=== PATIENT | female | born 1985 | race Caucasian/White ===

== ENCOUNTER 2016-03-07 07:14 | Emergency (ER) | payer OTHER ==
[~2016-03-07 07:14] MED LIST: IBUP800T23 PO; OXYC1TAB23 PO
[2016-03-07] MEDS ORDERED: MORPHINE 4 MG/ML 1ML SYRINGE As Ordered ONE ×2 (08:00→08:29)
[2016-03-07] MEDS ORDERED: ONDANSETRON 4MG/2ML VIAL (J2405) As Ordered ONE (08:00)
[2016-03-07 08:15] LABS: MEAN CORPUSCULAR HEMOGLOBIN 29.3 pg (27.0-33.0); MEAN CORPUSCULAR HGB CONC 32.8 g/dl (32.0-36.5); MEAN CORPUSCULAR VOLUME 89.4 fl (80.0-96.0); PLATELET COUNT, AUTOMATED 118 k/mm3 (150-450); RED CELL DISTRIBUTION WIDTH 13.4 % (11.5-14.5); WHITE BLOOD COUNT 4.4 K/mm3 (4.0-10.0)
[2016-03-07 08:20] LABS: CONTROL LINE HCG INT CTR LINE PRESENT
[2016-03-07 08:23] LABS: BASOPHILS 1 % (0-4); EOSINOPHILS 9 % (0-5)
[2016-03-07 08:28] LABS: ALBUMIN 3.5 GM/DL (3.2-5.2); ALBUMIN/GLOBULIN RATIO 1.03 (1.00-1.93); ALKALINE PHOSPHATASE 94 U/L (45-117); ALT/SGPT 22 U/L (12-78); AMYLASE 78 U/L (25-115); ANION GAP 6 MEQ/L (8-16); AST/SGOT 17 U/L (15-37); BILIRUBIN,DIRECT < 0.1 MG/DL (0.0-0.2); BILIRUBIN,TOTAL 0.3 MG/DL (0.2-1.0); BLOOD UREA NITROGEN 8 MG/DL (7-18); CALCIUM LEVEL 8.6 MG/DL (8.5-10.1); CARBON DIOXIDE LEVEL 30 MEQ/L (21-32); CHLORIDE LEVEL 108 MEQ/L (98-107); CREATININE FOR GFR 0.69 MG/DL (0.55-1.02); GLOMERULAR FILTRATION RATE > 60.0 (>60); GLUCOSE, FASTING 87 MG/DL (70-105); POTASSIUM SERUM 3.6 MEQ/L (3.5-5.1); SODIUM LEVEL 144 MEQ/L (136-145); TOTAL PROTEIN 6.9 GM/DL (6.4-8.2)
[2016-03-07] MEDS ORDERED: METOCLOPRAMIDE INJ 10MG/2ML VIAL (J2765) As Ordered ONE (09:46)
[2016-03-07] MEDS ORDERED: ISOVUE-370 76% 100ML VIAL (Q9967) As Ordered ONE (10:44)
--- NOTE | 2016-03-07 14:02 | EDDOCDS ---
Nurse's Notes [facility] Name: Helen Wyatt Age: 30 yrs Sex: Female : 1985 Arrival Date: 03/07/2016 Time: 07:14 Bed 8 Private MD: Diagnosis: Generalized abdominal pain;Vomiting Presentation: 03/07 07:19 Presenting complaint: Patient states: Awoke this am with abdominal, chest, back pain mlb1 and SOB. Adult Sepsis Screening: The patient does not have new or worsening altered mentation. Patient's respiratory rate is less than 22. Systolic blood pressure is greater than 100. Patient has a qSOFA score of 0- Negative Sepsis Screen. Suicide/Homicide risk assessment- the patient denies having any suicidal and/or homicidal ideations and does not present with any other emotional, behavioral or mental health complaints. 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 Transition of care: patient was not received from another setting of care. 07:19 Acuity: SOMMER Level 3 mlb1 07:19 Method Of Arrival: Walkin/Carried/Asstd mlb1 Triage Assessment: 07:22 General: Appears distressed, Behavior is appropriate for age, cooperative. Pain: mlb1 Location: back, chest and abdomen Pain currently is 8 out of 10 on a pain scale. HIV screening NA for this visit Offered previously. Respiratory: Onset: The symptoms/episode began/occurred this morning. Respiratory: Airway is patent Respiratory effort is even, unlabored, Reports shortness of breath. GI: Reports nausea. 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 multivitamin Oral tab 1 tablet daily 2. Sertraline 50 mg daily - PMHx: Asthma; PCOS; Seasonal Allergies; - PSHx: Gastric Bypass (2014); Tonsillectomy; Adenoidectomy; - Social history: Smoking status: Patient states former smoker of tobacco. No barriers to communication noted, The patient speaks fluent Syriac, Speaks appropriately for age. - Family history: Not pertinent. - : The pt / caregiver states he / she is not on anticoagulants. Home medication list is obtained from the patient. 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 Screenin:09 Screening information is obtained from the patient. Fall risk: No risks identified. jmk Assistance ADL's: requires no assistance with activities of daily living. Abuse/DV Screen: The patient / caregiver reports he/she is: not in a situation that causes fear, pain or injury. Nutritional screening: No deficits noted. Advance Directives: Currently, there is a health care proxy, norris yoon. There is no active DNR order. There is no living will. There is no Power of Dental Intern. home support is adequate. Assessment: 08:09 General: Appears skin warm and dry color satisfactory Moist pink oral mucosa. Indicates jmk discomfort to anterior chest that increase with inspiration or movement. chest CTA. abd soft and non distended with bowel sounds present x 4. Increased pain diffusely with concentrated areas about umbilicus. Cardiovascular: Capillary refill < 3 seconds Heart tones S1 S2 Edema is absent. Rhythm is. GI: Abdomen is flat, non- distended Bowel sounds present X 4 quads. Abd is tender to palpation in umbilical area. 08:35 General: Appears reports 7/10 discomfort. states " It just made me sleepy" again jmk medicated. 09:53 General: Appears vomiting liquid emesis. medicated for same. jmk 10:30 General: Appears unable to accomodate oral contrast. withotu further vomiting, yet no jmk receptive to contrast. 12:32 General: Appears states pain has persisted and continues to increase with movement. no jmk further emesis. IV patent. awaiting CT interp. 12:40 General: Appears overall presentation unchanged from arrival. without vomiting since jmk cessation of oral contrast. popsicle provided.. 13:14 General: Appears 1/2 popsicle taken and retained. states abdomen feels " the same". jmk presently resting in left side laying position. awaiting dispo. 14:00 Reassessment: Patient appears in no apparent distress at this time. Pain: Location: kr3 abdomen Pain currently is 6 out of 10 on a pain scale. Respiratory: Respiratory effort is even, unlabored. Derm: Skin is normal. Vital Signs: 07:23 BP 133 / 82; Pulse 70; Resp 16; Temp 97.6(TE); Pulse Ox 99% on R/A; Weight 83.91 kg mlb1 (R); Height 5 ft. 8 in. (172.72 cm) (R); Pain 8/10; 08:35 BP 127 / 71; Pulse 65; Resp 16; Pain 7/10; jmk 13:59 BP 121 / 68; Pulse 60; Resp 16; Temp 99.5(O); Pulse Ox 100% on R/A; Pain 6/10; kr3 07:23 Body Mass Index 28.13 (83.91 kg, 172.72 cm) mlb1 ED Course: 07:16 Patient visited by Ghulam Valenzuela Reg. pm4 07:16 Patient moved to Waiting pm4 07:19 Patient visited by Jaime Hood, TESSIE. mlb1 07:20 Triage Initiated mlb1 07:24 Patient visited by Jaime Hood, TESSIE. mlb1 07:28 Patient moved to PD2 / 27 mlb1 07:42 Patient moved to 8 mlb1 07:51 Amparo Singh MD is Attending Physician. sd1 07:56 Patient visited by Amparo Singh MD. sd1 08:09 The patient / caregiver is instructed regarding the plan of care and ED course. jmk 08:09 Inserted saline lock: 20 gauge in left antecubital area. jmk 08:17 Patient visited by Jerrod Shipman,TESSIE. jmk 08:29 DIFFERENTIAL NO CHARGE Sent. jmk 09:24 Patient visited by Harjeet Betancur. jml1 10:09 Patient visited by Sandee Crockett PCA. jlf 11:33 Patient visited by Sandee Crockett PCA. jlf 11:45 [facility] Payment Agreement was scanned into [employer] and attached to record. lg 11:54 Patient visited by Sandee Crockett PCA. jlf 12:18 Patient visited by Sandee Crockett PCA. jlf 12:41 Patient visited by Jerrod Shipman,TESSIE. jmk 13:15 Patient visited by Jerrod Shipman,TESSIE. jmk 14:00 Discontinued lock intact, bleeding controlled, pressure dressing applied, No kr3 redness/swelling at site. No procedures done that require assistance. Administered Medications: 08:08 Drug: morphine 4 mg Route: IVP; Site: left antecubital; jmk 08:08 Drug: Ondansetron 4 mg Route: IVP; Site: left antecubital; jmk 08:08 Drug: NS 0.9% 1000 ml Route: IV; Rate: 250 mL/hr; Site: left antecubital; jmk 08:34 Drug: morphine 4 mg Route: IVP; Site: left antecubital; jmk 09:41 Drug: Diatrizoate Meglumine & Sodium 10 ml [diatrizoate meglumine and diat.sodium 66 jmk %-10 % oral solution (10 mL)] Route: PO; 09:53 Drug: Metoclopramide 10 mg [metoclopramide 5 mg/mL injection solution] Route: IV; Rate: jmk 40 mg/hr; Infused Over: 15 mins; Site: left antecubital; Order Results: Lab Order: Amylase; SPEC'M 03/07/16 07:59 Test: AMYLASE; Value: 78; Range: 25-115; Units: U/L; Status: F Lab Order: Basic Metabolic Profile; SPEC'M 03/07/16 07:59 Test: GLUCOSE, FASTING; Value: 87; Range: 70-105; Units: MG/DL; Status: F Test: BLOOD UREA NITROGEN; Value: 8; Range: 7-18; Units: MG/DL; Status: F Test: CREATININE FOR GFR; Value: 0.69; Range: 0.55-1.02; Units: MG/DL; Status: F Test: SODIUM LEVEL; Range: 136-145; Units: MEQ/L; Status: I Test: POTASSIUM SERUM; Range: 3.5-5.1; Units: MEQ/L; Status: I Test: CHLORIDE LEVEL; Range: 98-107; Units: MEQ/L; Status: I Test: CARBON DIOXIDE LEVEL; Range: 21-32; Units: MEQ/L; Status: I Test: ANION GAP; Range: 8-16; Units: MEQ/L; Status: I Test: CALCIUM LEVEL; Range: 8.5-10.1; Units: MG/DL; Status: I Test: GLOMERULAR FILTRATION RATE; Value: > 60.0; Range: >60; Status: F Test: SODIUM LEVEL; Value: 144; Range: 136-145; Units: MEQ/L; Status: F Test: POTASSIUM SERUM; Value: 3.6; Range: 3.5-5.1; Units: MEQ/L; Status: F Test: CHLORIDE LEVEL; Value: 108; Range: 98-107; Abnormal: Above high normal; Units: MEQ/L; Status: F Test: CARBON DIOXIDE LEVEL; Value: 30; Range: 21-32; Units: MEQ/L; Status: F Test: ANION GAP; Value: 6; Range: 8-16; Abnormal: Below low normal; Units: MEQ/L; Status: F Test: CALCIUM LEVEL; Value: 8.6; Range: 8.5-10.1; Units: MG/DL; Status: F Test Note: ; Units are mL/min/1.73 m2 Chronic Kidney Disease Staging per NKF: Stage I & II GFR >=60 Normal to Mildly Decreased Stage III GFR 30-59 Moderately Decreased Stage IV GFR 15-29 Severely Decreased Stage V GFR <15 Very Little GFR Left ESRD GFR <15 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 Lab Order: CBC with Diff; SPEC'M 03/07/16 07:59 Test: WHITE BLOOD COUNT; Value: 4.4; Range: 4.0-10.0; Units: K/mm3; Status: F Test: RED BLOOD COUNT; Value: 4.08; Range: 4.00-5.40; Units: M/mm3; Status: F Test: HEMOGLOBIN; Value: 12.0; Range: 12.0-16.0; Units: g/dl; Status: F Test: HEMATOCRIT; Value: 36.5; Range: 36.0-47.0; Units: %; Status: F Test: MEAN CORPUSCULAR VOLUME; Value: 89.4; Range: 80.0-96.0; Units: fl; Status: F Test: MEAN CORPUSCULAR HEMOGLOBIN; Value: 29.3; Range: 27.0-33.0; Units: pg; Status: F Test: MEAN CORPUSCULAR HGB CONC; Value: 32.8; Range: 32.0-36.5; Units: g/dl; Status: F Test: RED CELL DISTRIBUTION WIDTH; Value: 13.4; Range: 11.5-14.5; Units: %; Status: F Test: PLATELET COUNT, AUTOMATED; Value: 118; Range: 150-450; Abnormal: Below low normal; Units: k/mm3; Status: F Test: PLATELET ESTIMATE; Range: NORMAL; Status: I Test: NEUTROPHILS; Value: 43; Range: 35-75; Units: %; Status: F Test: LYMPHOCYTES; Value: 34; Range: 16-52; Units: %; Status: F Test: MONOCYTES; Value: 5; Range: 0-8; Units: %; Status: F Test: EOSINOPHILS; Value: 9; Range: 0-5; Abnormal: Above high normal; Units: %; Status: F Test: BASOPHILS; Value: 1; Range: 0-4; Units: %; Status: F Test: ATYPICAL LYMPH; Value: 8; Range: 0-5; Abnormal: Above high normal; Units: %; Status: F Test: RBC MORPHOLOGY; Value: NORMAL; Status: F Lab Order: HCG,Serum Qualitative; 03/07/16 07:59 Test: HCG, SERUM QUALITATIVE; Value: NEGATIVE; Range: NEGATIVE; Status: F Lab Order: Lipase; 03/07/16 07:59 Test: LIPASE; Value: 103; Range: 73-393; Units: U/L; Status: F Lab Order: Liver Profile; 03/07/16 07:59 Test: AST/SGOT; Value: 17; Range: 15-37; Units: U/L; Status: F Test: ALT/SGPT; Value: 22; Range: 12-78; Units: U/L; Status: F Test: ALKALINE PHOSPHATASE; Value: 94; Range: 45-117; Units: U/L; Status: F Test: BILIRUBIN,TOTAL; Value: 0.3; Range: 0.2-1.0; Units: MG/DL; Status: F Test: BILIRUBIN,DIRECT; Value: < 0.1; Range: 0.0-0.2; Units: MG/DL; Status: F Test: TOTAL PROTEIN; Value: 6.9; Range: 6.4-8.2; Units: GM/DL; Status: F Test: ALBUMIN; Value: 3.5; Range: 3.2-5.2; Units: GM/DL; Status: F Test: ALBUMIN/GLOBULIN RATIO; Value: 1.03; Range: 1.00-1.93; Status: F Lab Order: PLATELET ESTIMATE; SPEC03/07/16 07:59 Test: PLATELET ESTIMATE; Value: DECREASED; Range: NORMAL; Status: F Outcome: 13:52 Discharge ordered by Provider. sd1 14:00 Discharge Assessment: patient administered narcotics - yes. Pt provided with safe kr3 discharge. The following High Risk Discharge criteria are identified: None. Discharged to home with family. Condition: stable. Discharge instructions given to patient, family, Instructed on discharge instructions, follow up and referral plans. medication usage, Demonstrated understanding of instructions, medications, Pt was receptive of discharge instructions/ teaching. Prescriptions given X 1. CT Study completed. Property sent home with patient. 14:01 Patient left the ED. kr3 Signatures: Amparo Singh MD MD sd1 Jerrod Shipman,RN RN jmk Arash Julien, Reg Reg lg Jaime Hood RN RN mlb1 Rosa Ordoñez,RN RN kr3 Harjeet Betancur jmSandee Stone, KAYLIE DEVOPS ENGINEER jlf Ghulam Valenzuela, Reg Reg pm4 Corrections: (The following items were deleted from the chart) 08:37 08:09 Advance Directives: Currently, there is no health care proxy. There is no active qik DNR order. There is no living will. There is no Power of Dental Intern. adama YSABEL
--- NOTE | 2016-03-07 14:02 | EDDOCDS ---
Physician Documentation [facility] Name: Helen Wyatt Age: 30 yrs Sex: Female : 1985 Arrival Date: 03/07/2016 Time: 07:14 Bed 8 Private MD: Disposition: 03/07/16 13:52 Discharged to Home/Self Care. Impression: Generalized abdominal pain, Vomiting. - Condition is Stable. - Discharge Instructions: Abdominal Pain, Adult, Nausea and Vomiting. - Prescriptions for ZOFRAN ODT 4 mg - dissolve 1 tablet by ORAL route 4 times per day As needed do not chew, do not swallow whole; 10 tablet. - Medication Reconciliation, Local Pharmacy Hours form. - Follow up: Emergency Department; When: Tomorrow; Reason: Recheck today's complaints. - Problem is new. - Symptoms have improved. Historical: - Allergies: PENICILLINS (Hives); SULFA (SULFONAMIDES) (Hives); - Home Meds: 1. multivitamin Oral tab 1 tablet daily 2. Sertraline 50 mg daily - PMHx: Asthma; PCOS; Seasonal Allergies; - PSHx: Gastric Bypass (2014); Tonsillectomy; Adenoidectomy; - Social history: Smoking status: Patient states former smoker of tobacco. No barriers to communication noted, The patient speaks fluent Indonesian, Speaks appropriately for age. - Family history: Not pertinent. - : The pt / caregiver states he / she is not on anticoagulants. Home medication list is obtained from the patient. 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 8 in. (172.72 cm) (R); Pain 8/10; 08:35 BP 127 / 71; Pulse 65; Resp 16; Pain 7/10; jmk 13:59 BP 121 / 68; Pulse 60; Resp 16; Temp 99.5(O); Pulse Ox 100% on R/A; Pain 6/10; kr3 07:23 Body Mass Index 28.13 (83.91 kg, 172.72 cm) mlb1 MDM: 07:28 ECG WITH READING ER PHYS+CARDIAG ordered. EDMS 07:56 Undress patient appropriately for examination ordered. sd1 07:56 IV Saline Lock ordered. sd1 07:56 morphine 4 mg IVP every 15 minutes; Document pain score/vitals after each dose (Hold if sd1 SBP < 90mmHg) x2 ordered. 07:56 Ondansetron 4 mg IVP once ordered. sd1 07:56 NS 0.9% 1000 ml IV at 250 mL/hr continuous ordered. sd1 07:57 NOTHING BY MOUTH+DIET ordered. EDMS 07:57 Amylase Ordered. EDMS 07:57 Basic Metabolic Profile Ordered. EDMS 07:57 CBC with Diff Ordered. EDMS 07:57 HCG,Serum Qualitative Ordered. EDMS 07:57 Lipase Ordered. EDMS 07:57 Liver Profile Ordered. EDMS 08:18 DIFFERENTIAL NO CHARGE Ordered. EDMS 08:18 PLATELET ESTIMATE Ordered. EDMS 08:44 Financial registration complete. lg 08:51 Basic Metabolic Profile Reviewed. sd1 08:51 CBC with Diff Reviewed. sd1 08:51 Amylase Reviewed. sd1 08:51 HCG,Serum Qualitative Reviewed. sd1 08:51 Lipase Reviewed. sd1 08:51 Liver Profile Reviewed. sd1 08:51 PLATELET ESTIMATE Reviewed. sd1 08:54 CT ABD & PELVIS: IV and Oral Contrast Ordered. EDMS 09:41 Diatrizoate Meglumine & Sodium Liquid 10 ml PO once; mix in 290cc of water ordered. jmk 09:46 Metoclopramide 10 mg IV at 40 mg/hr once over 15 mins ordered. sd1 11:45 [facility] Payment Agreement was scanned into [employer] and attached to record. lg 12:37 Fluid Challenge ordered. sd1 Administered Medications: 08:08 Drug: morphine 4 mg Route: IVP; Site: left antecubital; jmk 08:08 Drug: Ondansetron 4 mg Route: IVP; Site: left antecubital; jmk 08:08 Drug: NS 0.9% 1000 ml Route: IV; Rate: 250 mL/hr; Site: left antecubital; jmk 08:34 Drug: morphine 4 mg Route: IVP; Site: left antecubital; jmk 09:41 Drug: Diatrizoate Meglumine & Sodium 10 ml [diatrizoate meglumine and diat.sodium 66 jmk %-10 % oral solution (10 mL)] Route: PO; 09:53 Drug: Metoclopramide 10 mg [metoclopramide 5 mg/mL injection solution] Route: IV; Rate: jmk 40 mg/hr; Infused Over: 15 mins; Site: left antecubital; Signatures: Dispatcher [employer] Amparo Nevarez MD MD sd1 Jerrod ShipmanRN RN Arash Chauhan, Walker Reg lg Jaime Hood RN RN mlb1 Rosa Ordoñez RN RN kr3 The chart was reviewed and I authenticate all verbal orders and agree with the evaluation and treatment provided.Attachments: 11:45 [facility] Payment Agreement lg MTDD
--- NOTE | 2016-03-07 19:56 | ECGEPIP ---
Stationary ECG Study [facility] - ED Test Date: 2016-03-07 Pat Name: ARY GARCIAS Department: Room: - Gender: F Doctor Of Pharmacy: JGunner : 1985 Requested By: Amparo Singh Order Number: [id number] Reading MD: Amparo Singh Measurements Intervals [place] Rate: 58 P: 58 SD: 180 QRS: 63 QRSD: 114 T: 36 QT: 418 QTc: 413 Interpretive Statements SINUS BRADYCARDIA MODERATE INTRAVENTRICULAR CONDUCTION DELAY DECREASED RATE 08/05/15 Electronically Signed On 03-07-2016 19:56:17 EST by Amparo iSngh
--- NOTE | 2016-03-07 21:39 | REP ---
CT abdomen and pelvis with IV and oral contrast, 03/07/2016 Indication: Abdominal pain Comparison: None Technique: After drinking two cups of oral contrast, each containing 10 ml gastrographin in 290 ml water, 100 ml Isovue 370 mg/ml was injected . 3 mm spiral axial sections were performed through the abdomen and pelvis. Findings: Small amount of dependent atelectasis is noted in lung bases bilaterally. There is mild diffuse fatty infiltration of liver. Liver is enlarged, 21.5 cm cranial caudal dimension. Spleen is upper normal size. The pancreas and gallbladder unremarkable. Adrenal glands are normal. Kidneys are without hydro nephrosis or obstructing ureteral calculi bilaterally. Postsurgical changes are present in the left upper quadrant consistent with prior gastric bypass surgery. There are no findings to suggest small bowel obstruction. P.0. contrast is seen to the mid ileum in the left upper pelvis. Abdominal aorta is of normal course and caliber . There is no retroperitoneal adenopathy. 3 mm calculus is seen on image 122, series 2 in lower pelvis within the dependent portion of bladder or in anterior uterus in a subserosal location. The bladder is without mural thickening. Uterus and adnexae are within normal limits for age. Appendix is without inflammation. Mild mural thickening within the sigmoid colon is most compatible with underdistension There is no free intraperitoneal air or ascites. Impression: Mild mural thickening and sigmoid colon is most compatible with underdistension. In appropriate clinical setting mild colitis may also be considered within the differential diagnosis. Mild diffuse fatty infiltration of liver; hepatomegaly with liver 21.5 cm cranial caudal dimension Prior gastric bypass surgery without evidence of bowel obstruction, extraluminal contrast or free intraperitoneal air Signed by Regina Avina MD 03/07/2016 09:31 P
--- NOTE | 2016-03-09 15:01 | EDDOCDS ---
Physician Documentation [facility] Name: Helen Wyatt Age: 30 yrs Sex: Female : 1985 Arrival Date: 03/07/2016 Time: 07:14 Bed 8 Private MD: Disposition: 03/07/16 13:52 Discharged to Home/Self Care. Impression: Generalized abdominal pain, Vomiting. - Condition is Stable. - Discharge Instructions: Abdominal Pain, Adult, Nausea and Vomiting. - Prescriptions for ZOFRAN ODT 4 mg - dissolve 1 tablet by ORAL route 4 times per day As needed do not chew, do not swallow whole; 10 tablet. - Medication Reconciliation, Local Pharmacy Hours form. - Follow up: Emergency Department; When: Tomorrow; Reason: Recheck today's complaints. - Problem is new. - Symptoms have improved. Historical: - Allergies: PENICILLINS (Hives); SULFA (SULFONAMIDES) (Hives); - Home Meds: 1. multivitamin Oral tab 1 tablet daily 2. Sertraline 50 mg daily - PMHx: Asthma; PCOS; Seasonal Allergies; - PSHx: Gastric Bypass (2014); Tonsillectomy; Adenoidectomy; - Social history: Smoking status: Patient states former smoker of tobacco. No barriers to communication noted, The patient speaks fluent Thai, Speaks appropriately for age. - Family history: Not pertinent. - : The pt / caregiver states he / she is not on anticoagulants. Home medication list is obtained from the patient. 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 8 in. (172.72 cm) (R); Pain 8/10; 08:35 BP 127 / 71; Pulse 65; Resp 16; Pain 7/10; jmk 13:59 BP 121 / 68; Pulse 60; Resp 16; Temp 99.5(O); Pulse Ox 100% on R/A; Pain 6/10; kr3 07:23 Body Mass Index 28.13 (83.91 kg, 172.72 cm) mlb1 MDM: 07:28 ECG WITH READING ER PHYS+CARDIAG ordered. EDMS 07:56 Undress patient appropriately for examination ordered. sd1 07:56 IV Saline Lock ordered. sd1 07:56 morphine 4 mg IVP every 15 minutes; Document pain score/vitals after each dose (Hold if sd1 SBP < 90mmHg) x2 ordered. 07:56 Ondansetron 4 mg IVP once ordered. sd1 07:56 NS 0.9% 1000 ml IV at 250 mL/hr continuous ordered. sd1 07:57 NOTHING BY MOUTH+DIET ordered. EDMS 07:57 Amylase Ordered. EDMS 07:57 Basic Metabolic Profile Ordered. EDMS 07:57 CBC with Diff Ordered. EDMS 07:57 HCG,Serum Qualitative Ordered. EDMS 07:57 Lipase Ordered. EDMS 07:57 Liver Profile Ordered. EDMS 08:18 DIFFERENTIAL NO CHARGE Ordered. EDMS 08:18 PLATELET ESTIMATE Ordered. EDMS 08:44 Financial registration complete. lg 08:51 Basic Metabolic Profile Reviewed. sd1 08:51 CBC with Diff Reviewed. sd1 08:51 Amylase Reviewed. sd1 08:51 HCG,Serum Qualitative Reviewed. sd1 08:51 Lipase Reviewed. sd1 08:51 Liver Profile Reviewed. sd1 08:51 PLATELET ESTIMATE Reviewed. sd1 08:54 CT ABD & PELVIS: IV and Oral Contrast Ordered. EDMS 09:41 Diatrizoate Meglumine & Sodium Liquid 10 ml PO once; mix in 290cc of water ordered. jmk 09:46 Metoclopramide 10 mg IV at 40 mg/hr once over 15 mins ordered. sd1 11:45 [facility] Payment Agreement was scanned into [employer] and attached to record. lg 12:37 Fluid Challenge ordered. sd1 03/08 13:15 EKG-ADULT Reviewed. sd1 13:15 CT ABD & PELVIS: IV and Oral Contrast Reviewed. sd1 03/09 08:39 ECG/EKG was scanned into [employer] and attached to record. gb 11:41 T-Sheet-- Draft Copy was scanned into [employer] and attached to record. gb Administered Medications: 03/07 08:08 Drug: morphine 4 mg Route: IVP; Site: left antecubital; jmk 08:08 Drug: Ondansetron 4 mg Route: IVP; Site: left antecubital; jmk 08:08 Drug: NS 0.9% 1000 ml Route: IV; Rate: 250 mL/hr; Site: left antecubital; jmk 08:34 Drug: morphine 4 mg Route: IVP; Site: left antecubital; jmk 09:41 Drug: Diatrizoate Meglumine & Sodium 10 ml [diatrizoate meglumine and diat.sodium 66 jmk %-10 % oral solution (10 mL)] Route: PO; 09:53 Drug: Metoclopramide 10 mg [metoclopramide 5 mg/mL injection solution] Route: IV; Rate: jmk 40 mg/hr; Infused Over: 15 mins; Site: left antecubital; Signatures: Dispatcher [employer] EDAmparo He MD MD sd1 Jerrod Shipman,RN RN Moriah Brooks, Reg Reg gb Arash Julien, Reg Reg lg Jaime Hood RN RN mlb1 Rosa Ordoñez,RN RN kr3 The chart was reviewed and I authenticate all verbal orders and agree with the evaluation and treatment provided.Attachments: 11:45 [facility] Payment Agreement lg 03/09 08:39 ECG/EKG gb 11:41 T-Sheet-- Draft Copy gb Chart Complete MTDD
--- NOTE | 2016-03-09 15:01 | EDDOCDS ---
Physician Documentation [facility] Name: Helen Wyatt Age: 30 yrs Sex: Female : 1985 Arrival Date: 03/07/2016 Time: 07:14 Bed 8 Private MD: Disposition: 03/07/16 13:52 Discharged to Home/Self Care. Impression: Generalized abdominal pain, Vomiting. - Condition is Stable. - Discharge Instructions: Abdominal Pain, Adult, Nausea and Vomiting. - Prescriptions for ZOFRAN ODT 4 mg - dissolve 1 tablet by ORAL route 4 times per day As needed do not chew, do not swallow whole; 10 tablet. - Medication Reconciliation, Local Pharmacy Hours form. - Follow up: Emergency Department; When: Tomorrow; Reason: Recheck today's complaints. - Problem is new. - Symptoms have improved. Historical: - Allergies: PENICILLINS (Hives); SULFA (SULFONAMIDES) (Hives); - Home Meds: 1. multivitamin Oral tab 1 tablet daily 2. Sertraline 50 mg daily - PMHx: Asthma; PCOS; Seasonal Allergies; - PSHx: Gastric Bypass (2014); Tonsillectomy; Adenoidectomy; - Social history: Smoking status: Patient states former smoker of tobacco. No barriers to communication noted, The patient speaks fluent Icelandic, Speaks appropriately for age. - Family history: Not pertinent. - : The pt / caregiver states he / she is not on anticoagulants. Home medication list is obtained from the patient. 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 PMP: 03/07 07:23 LMP 02/16/2016 mlb1 Vital Signs: 07:23 BP 133 / 82; Pulse 70; Resp 16; Temp 97.6(TE); Pulse Ox 99% on R/A; Weight 83.91 kg / mlb1 184.99 lbs (R); Height 5 ft. 8 in. (172.72 cm) (R); Pain 8/10; 08:35 BP 127 / 71; Pulse 65; Resp 16; Pain 7/10; jmk 13:59 BP 121 / 68; Pulse 60; Resp 16; Temp 99.5(O); Pulse Ox 100% on R/A; Pain 6/10; kr3 07:23 Body Mass Index 28.13 (83.91 kg, 172.72 cm) mlb1 MDM: 07:28 ECG WITH READING ER PHYS+CARDIAG ordered. EDMS 07:56 Undress patient appropriately for examination ordered. sd1 07:56 IV Saline Lock ordered. sd1 07:56 morphine 4 mg IVP every 15 minutes; Document pain score/vitals after each dose (Hold if sd1 SBP < 90mmHg) x2 ordered. 07:56 Ondansetron 4 mg IVP once ordered. sd1 07:56 NS 0.9% 1000 ml IV at 250 mL/hr continuous ordered. sd1 07:57 NOTHING BY MOUTH+DIET ordered. EDMS 07:57 Amylase Ordered. EDMS 07:57 Basic Metabolic Profile Ordered. EDMS 07:57 CBC with Diff Ordered. EDMS 07:57 HCG,Serum Qualitative Ordered. EDMS 07:57 Lipase Ordered. EDMS 07:57 Liver Profile Ordered. EDMS 08:18 DIFFERENTIAL NO CHARGE Ordered. EDMS 08:18 PLATELET ESTIMATE Ordered. EDMS 08:44 Financial registration complete. lg 08:51 Basic Metabolic Profile Reviewed. sd1 08:51 CBC with Diff Reviewed. sd1 08:51 Amylase Reviewed. sd1 08:51 HCG,Serum Qualitative Reviewed. sd1 08:51 Lipase Reviewed. sd1 08:51 Liver Profile Reviewed. sd1 08:51 PLATELET ESTIMATE Reviewed. sd1 08:54 CT ABD & PELVIS: IV and Oral Contrast Ordered. EDMS 09:41 Diatrizoate Meglumine & Sodium Liquid 10 ml PO once; mix in 290cc of water ordered. jmk 09:46 Metoclopramide 10 mg IV at 40 mg/hr once over 15 mins ordered. sd1 11:45 [facility] Payment Agreement was scanned into [employer] and attached to record. lg 12:37 Fluid Challenge ordered. sd1 03/08 13:15 EKG-ADULT Reviewed. sd1 13:15 CT ABD & PELVIS: IV and Oral Contrast Reviewed. sd1 03/09 08:39 ECG/EKG was scanned into [employer] and attached to record. gb 11:41 T-Sheet-- Draft Copy was scanned into [employer] and attached to record. gb Administered Medications: 03/07 08:08 Drug: morphine 4 mg Route: IVP; Site: left antecubital; jmk 08:08 Drug: Ondansetron 4 mg Route: IVP; Site: left antecubital; jmk 08:08 Drug: NS 0.9% 1000 ml Route: IV; Rate: 250 mL/hr; Site: left antecubital; jmk 08:34 Drug: morphine 4 mg Route: IVP; Site: left antecubital; jmk 09:41 Drug: Diatrizoate Meglumine & Sodium 10 ml [diatrizoate meglumine and diat.sodium 66 jmk %-10 % oral solution (10 mL)] Route: PO; 09:53 Drug: Metoclopramide 10 mg [metoclopramide 5 mg/mL injection solution] Route: IV; Rate: jmk 40 mg/hr; Infused Over: 15 mins; Site: left antecubital; Signatures: Dispatcher [employer] EDAmparo He MD MD sd1 Jerrod Shipman,RN RN Moriah Brooks, Reg Reg gb Arash Julien, Reg Reg lg Jaime Hood RN RN mlb1 Rosa Ordoñez,RN RN kr3 The chart was reviewed and I authenticate all verbal orders and agree with the evaluation and treatment provided.Attachments: 11:45 [facility] Payment Agreement lg 03/09 08:39 ECG/EKG gb 11:41 T-Sheet-- Draft Copy gb Chart Complete MTDD
--- NOTE | 2016-03-09 15:02 | EDDOCDS ---
Nurse's Notes [facility] Name: Helen Garcias Age: 30 yrs Sex: Female : 1985 Arrival Date: 03/07/2016 Time: 07:14 Bed 8 Private MD: Diagnosis: Generalized abdominal pain;Vomiting Presentation: 03/07 07:19 Presenting complaint: Patient states: Awoke this am with abdominal, chest, back pain mlb1 and SOB. Adult Sepsis Screening: The patient does not have new or worsening altered mentation. Patient's respiratory rate is less than 22. Systolic blood pressure is greater than 100. Patient has a qSOFA score of 0- Negative Sepsis Screen. Suicide/Homicide risk assessment- the patient denies having any suicidal and/or homicidal ideations and does not present with any other emotional, behavioral or mental health complaints. 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 Transition of care: patient was not received from another setting of care. 07:19 Acuity: SOMMER Level 3 mlb1 07:19 Method Of Arrival: Walkin/Carried/Asstd mlb1 Triage Assessment: 07:22 General: Appears distressed, Behavior is appropriate for age, cooperative. Pain: mlb1 Location: back, chest and abdomen Pain currently is 8 out of 10 on a pain scale. HIV screening NA for this visit Offered previously. Respiratory: Onset: The symptoms/episode began/occurred this morning. Respiratory: Airway is patent Respiratory effort is even, unlabored, Reports shortness of breath. GI: Reports nausea. 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 multivitamin Oral tab 1 tablet daily 2. Sertraline 50 mg daily - PMHx: Asthma; PCOS; Seasonal Allergies; - PSHx: Gastric Bypass (2014); Tonsillectomy; Adenoidectomy; - Social history: Smoking status: Patient states former smoker of tobacco. No barriers to communication noted, The patient speaks fluent Ukrainian, Speaks appropriately for age. - Family history: Not pertinent. - : The pt / caregiver states he / she is not on anticoagulants. Home medication list is obtained from the patient. 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 Screenin:09 Screening information is obtained from the patient. Fall risk: No risks identified. jmk Assistance ADL's: requires no assistance with activities of daily living. Abuse/DV Screen: The patient / caregiver reports he/she is: not in a situation that causes fear, pain or injury. Nutritional screening: No deficits noted. Advance Directives: Currently, there is a health care proxy, norris yoon. There is no active DNR order. There is no living will. There is no Power of Social Group Worker. home support is adequate. Assessment: 08:09 General: Appears skin warm and dry color satisfactory Moist pink oral mucosa. Indicates jmk discomfort to anterior chest that increase with inspiration or movement. chest CTA. abd soft and non distended with bowel sounds present x 4. Increased pain diffusely with concentrated areas about umbilicus. Cardiovascular: Capillary refill < 3 seconds Heart tones S1 S2 Edema is absent. Rhythm is. GI: Abdomen is flat, non- distended Bowel sounds present X 4 quads. Abd is tender to palpation in umbilical area. 08:35 General: Appears reports 7/10 discomfort. states " It just made me sleepy" again jmk medicated. 09:53 General: Appears vomiting liquid emesis. medicated for same. jmk 10:30 General: Appears unable to accomodate oral contrast. withotu further vomiting, yet no jmk receptive to contrast. 12:32 General: Appears states pain has persisted and continues to increase with movement. no jmk further emesis. IV patent. awaiting CT interp. 12:40 General: Appears overall presentation unchanged from arrival. without vomiting since jmk cessation of oral contrast. popsicle provided.. 13:14 General: Appears 1/2 popsicle taken and retained. states abdomen feels " the same". jmk presently resting in left side laying position. awaiting dispo. 14:00 Reassessment: Patient appears in no apparent distress at this time. Pain: Location: kr3 abdomen Pain currently is 6 out of 10 on a pain scale. Respiratory: Respiratory effort is even, unlabored. Derm: Skin is normal. Vital Signs: 07:23 BP 133 / 82; Pulse 70; Resp 16; Temp 97.6(TE); Pulse Ox 99% on R/A; Weight 83.91 kg mlb1 (R); Height 5 ft. 8 in. (172.72 cm) (R); Pain 8/10; 08:35 BP 127 / 71; Pulse 65; Resp 16; Pain 7/10; jmk 13:59 BP 121 / 68; Pulse 60; Resp 16; Temp 99.5(O); Pulse Ox 100% on R/A; Pain 6/10; kr3 07:23 Body Mass Index 28.13 (83.91 kg, 172.72 cm) mlb1 ED Course: 07:16 Patient visited by Ghulam Valenzuela Reg. pm4 07:16 Patient moved to Waiting pm4 07:19 Patient visited by Jaime Hood, TESSIE. mlb1 07:20 Triage Initiated mlb1 07:24 Patient visited by Jamie Hood, TESSIE. mlb1 07:28 Patient moved to PD2 / 27 mlb1 07:42 Patient moved to 8 mlb1 07:51 Amparo Singh MD is Attending Physician. sd1 07:56 Patient visited by Amparo Singh MD. sd1 08:09 The patient / caregiver is instructed regarding the plan of care and ED course. jmk 08:09 Inserted saline lock: 20 gauge in left antecubital area. jmk 08:17 Patient visited by Jerrod Shipman,TESSIE. jmk 08:29 DIFFERENTIAL NO CHARGE Sent. jmk 09:24 Patient visited by Harjeet Betancur. jml1 10:09 Patient visited by Sandee Crockett PCA. jlf 11:33 Patient visited by Sadnee Crockett PCA. jlf 11:45 [facility] Payment Agreement was scanned into [employer] and attached to record. lg 11:54 Patient visited by Sandee Crockett PCA. jlf 12:18 Patient visited by Sandee Crockett PCA. jlf 12:41 Patient visited by Jerrod Shipman,TESSIE. jmk 13:15 Patient visited by Jerrod Shipman,TESSIE. jmk 14:00 Discontinued lock intact, bleeding controlled, pressure dressing applied, No kr3 redness/swelling at site. No procedures done that require assistance. 20:05 EKG-ADULT Returned. EDMS 22:32 CT ABD & PELVIS: IV and Oral Contrast Returned. EDMS 03/09 08:39 ECG/EKG was scanned into [employer] and attached to record. gb 11:41 T-Sheet-- Draft Copy was scanned into [employer] and attached to record. gb Administered Medications: 03/07 08:08 Drug: morphine 4 mg Route: IVP; Site: left antecubital; jmk 08:08 Drug: Ondansetron 4 mg Route: IVP; Site: left antecubital; jmk 08:08 Drug: NS 0.9% 1000 ml Route: IV; Rate: 250 mL/hr; Site: left antecubital; jmk 08:34 Drug: morphine 4 mg Route: IVP; Site: left antecubital; jmk 09:41 Drug: Diatrizoate Meglumine & Sodium 10 ml [diatrizoate meglumine and diat.sodium 66 jmk %-10 % oral solution (10 mL)] Route: PO; 09:53 Drug: Metoclopramide 10 mg [metoclopramide 5 mg/mL injection solution] Route: IV; Rate: jmk 40 mg/hr; Infused Over: 15 mins; Site: left antecubital; Order Results: Lab Order: Amylase; SPEC'M 03/07/16 07:59 Test: AMYLASE; Value: 78; Range: 25-115; Units: U/L; Status: F Lab Order: Basic Metabolic Profile; SPEC'M 03/07/16 07:59 Test: GLUCOSE, FASTING; Value: 87; Range: 70-105; Units: MG/DL; Status: F Test: BLOOD UREA NITROGEN; Value: 8; Range: 7-18; Units: MG/DL; Status: F Test: CREATININE FOR GFR; Value: 0.69; Range: 0.55-1.02; Units: MG/DL; Status: F Test: SODIUM LEVEL; Range: 136-145; Units: MEQ/L; Status: I Test: POTASSIUM SERUM; Range: 3.5-5.1; Units: MEQ/L; Status: I Test: CHLORIDE LEVEL; Range: 98-107; Units: MEQ/L; Status: I Test: CARBON DIOXIDE LEVEL; Range: 21-32; Units: MEQ/L; Status: I Test: ANION GAP; Range: 8-16; Units: MEQ/L; Status: I Test: CALCIUM LEVEL; Range: 8.5-10.1; Units: MG/DL; Status: I Test: GLOMERULAR FILTRATION RATE; Value: > 60.0; Range: >60; Status: F Test: SODIUM LEVEL; Value: 144; Range: 136-145; Units: MEQ/L; Status: F Test: POTASSIUM SERUM; Value: 3.6; Range: 3.5-5.1; Units: MEQ/L; Status: F Test: CHLORIDE LEVEL; Value: 108; Range: 98-107; Abnormal: Above high normal; Units: MEQ/L; Status: F Test: CARBON DIOXIDE LEVEL; Value: 30; Range: 21-32; Units: MEQ/L; Status: F Test: ANION GAP; Value: 6; Range: 8-16; Abnormal: Below low normal; Units: MEQ/L; Status: F Test: CALCIUM LEVEL; Value: 8.6; Range: 8.5-10.1; Units: MG/DL; Status: F Test Note: ; Units are mL/min/1.73 m2 Chronic Kidney Disease Staging per NKF: Stage I & II GFR >=60 Normal to Mildly Decreased Stage III GFR 30-59 Moderately Decreased Stage IV GFR 15-29 Severely Decreased Stage V GFR <15 Very Little GFR Left ESRD GFR <15 on DIRECTOR MEDICAL WRITING Lab Order: CBC with Diff; SPEC'M 03/07/16 07:59 Test: WHITE BLOOD COUNT; Value: 4.4; Range: 4.0-10.0; Units: K/mm3; Status: F Test: RED BLOOD COUNT; Value: 4.08; Range: 4.00-5.40; Units: M/mm3; Status: F Test: HEMOGLOBIN; Value: 12.0; Range: 12.0-16.0; Units: g/dl; Status: F Test: HEMATOCRIT; Value: 36.5; Range: 36.0-47.0; Units: %; Status: F Test: MEAN CORPUSCULAR VOLUME; Value: 89.4; Range: 80.0-96.0; Units: fl; Status: F Test: MEAN CORPUSCULAR HEMOGLOBIN; Value: 29.3; Range: 27.0-33.0; Units: pg; Status: F Test: MEAN CORPUSCULAR HGB CONC; Value: 32.8; Range: 32.0-36.5; Units: g/dl; Status: F Test: RED CELL DISTRIBUTION WIDTH; Value: 13.4; Range: 11.5-14.5; Units: %; Status: F Test: PLATELET COUNT, AUTOMATED; Value: 118; Range: 150-450; Abnormal: Below low normal; Units: k/mm3; Status: F Test: PLATELET ESTIMATE; Range: NORMAL; Status: I Test: NEUTROPHILS; Value: 43; Range: 35-75; Units: %; Status: F Test: LYMPHOCYTES; Value: 34; Range: 16-52; Units: %; Status: F Test: MONOCYTES; Value: 5; Range: 0-8; Units: %; Status: F Test: EOSINOPHILS; Value: 9; Range: 0-5; Abnormal: Above high normal; Units: %; Status: F Test: BASOPHILS; Value: 1; Range: 0-4; Units: %; Status: F Test: ATYPICAL LYMPH; Value: 8; Range: 0-5; Abnormal: Above high normal; Units: %; Status: F Test: RBC MORPHOLOGY; Value: NORMAL; Status: F Lab Order: HCG,Serum Qualitative; SPEC' 03/07/16 07:59 Test: HCG, SERUM QUALITATIVE; Value: NEGATIVE; Range: NEGATIVE; Status: F Lab Order: Lipase; [facility]' 03/07/16 07:59 Test: LIPASE; Value: 103; Range: 73-393; Units: U/L; Status: F Lab Order: Liver Profile; [facility] 03/07/16 07:59 Test: AST/SGOT; Value: 17; Range: 15-37; Units: U/L; Status: F Test: ALT/SGPT; Value: 22; Range: 12-78; Units: U/L; Status: F Test: ALKALINE PHOSPHATASE; Value: 94; Range: 45-117; Units: U/L; Status: F Test: BILIRUBIN,TOTAL; Value: 0.3; Range: 0.2-1.0; Units: MG/DL; Status: F Test: BILIRUBIN,DIRECT; Value: < 0.1; Range: 0.0-0.2; Units: MG/DL; Status: F Test: TOTAL PROTEIN; Value: 6.9; Range: 6.4-8.2; Units: GM/DL; Status: F Test: ALBUMIN; Value: 3.5; Range: 3.2-5.2; Units: GM/DL; Status: F Test: ALBUMIN/GLOBULIN RATIO; Value: 1.03; Range: 1.00-1.93; Status: F Lab Order: PLATELET ESTIMATE; SPEC'M 03/07/16 07:59 Test: PLATELET ESTIMATE; Value: DECREASED; Range: NORMAL; Status: F Radiology Order: EKG-ADULT Test: EKG-ADULT REASON FOR EXAMINATION: Chest Pain; Stationary ECG Study; [facility] - ED; ; Test Date: 2016-03-07; Pat Name: HELEN GRACIAS Department:; Room: -; Gender: F Fine Grader: JALEESA; : 1985 Requested By: Amparo Singh; Order Number: [id number] Reading MD: Amparo Singh; Measurements; Intervals [place]; Rate: 58 P: 58; MD: 180 QRS: 63; QRSD: 114 T: 36; QT: 418; QTc: 413; Interpretive Statements; SINUS BRADYCARDIA; MODERATE INTRAVENTRICULAR CONDUCTION DELAY; DECREASED RATE 08/05/15; Electronically Signed On 03-07-2016 19:56:17 EST by Amparo Singh; Radiology Order: CT ABD & PELVIS: IV and Oral Contrast Test: CT ABD & PELVIS: IV and Oral Contrast REASON FOR EXAMINATION: Abdomen Pain; CT abdomen and pelvis with IV and oral contrast, 03/07/2016; ; Indication: Abdominal pain; ; Comparison: None; ; Technique: After drinking two cups of oral contrast, each containing 10 ml; gastrographin in 290 ml water, 100 ml Isovue 370 mg/ml was injected . 3 mm spiral; axial sections were performed through the abdomen and pelvis.; ; Findings: Small amount of dependent atelectasis is noted in lung bases; bilaterally. There is mild diffuse fatty infiltration of liver. Liver is; enlarged, 21.5 cm cranial caudal dimension. Spleen is upper normal size. The; pancreas and gallbladder unremarkable. Adrenal glands are normal. Kidneys are; without hydro nephrosis or obstructing ureteral calculi bilaterally.; ; Postsurgical changes are present in the left upper quadrant consistent with prior; gastric bypass surgery. There are no findings to suggest small bowel; obstruction. P.0. contrast is seen to the mid ileum in the left upper pelvis.; Abdominal aorta is of normal course and caliber . There is no retroperitoneal; adenopathy. 3 mm calculus is seen on image 122, series 2 in lower pelvis; within the dependent portion of bladder or in anterior uterus in a subserosal; location.; ; The bladder is without mural thickening. Uterus and adnexae are within normal; limits for age. Appendix is without inflammation. Mild mural thickening within; the sigmoid colon is most compatible with underdistension There is no free; intraperitoneal air or ascites.; ; Impression:; ; Mild mural thickening and sigmoid colon is most compatible with underdistension.; In appropriate clinical setting mild colitis may also be considered within the; differential diagnosis.; ; Mild diffuse fatty infiltration of liver; hepatomegaly with liver 21.5 cm cranial; caudal dimension; ; Prior gastric bypass surgery without evidence of bowel obstruction, extraluminal; contrast or free intraperitoneal air; ; ; ; ; ; ; Signed by; Regina Avina MD 03/07/2016 09:31 P; Outcome: 13:52 Discharge ordered by Provider. sd1 14:00 Discharge Assessment: patient administered narcotics - yes. Pt provided with safe kr3 discharge. The following High Risk Discharge criteria are identified: None. Discharged to home with family. Condition: stable. Discharge instructions given to patient, family, Instructed on discharge instructions, follow up and referral plans. medication usage, Demonstrated understanding of instructions, medications, Pt was receptive of discharge instructions/ teaching. Prescriptions given X 1. CT Study completed. Property sent home with patient. 14:01 Patient left the ED. kr3 Signatures: Dispatcher [employer] EDAmparo He MD MD sd1 Jerrod Shipman,RN RN Moriah Brooks, Reg Reg gb Arash Julien, Reg Reg lg Jaime Hood, RN RN mlb1 Rosa Ordoñez,RN RN kr3 Harjeet Betancur jml1 Sandee Crockett, FRANCHISE MANAGER FRANCHISE MANAGER jlf Ghulam Valenzuela, Reg Reg pm4 Corrections: (The following items were deleted from the chart) 08:37 08:09 Advance Directives: Currently, there is no health care proxy. There is no active adama DNR order. There is no living will. There is no Power of Social Group Worker. katarzyna Chart Complete MTDD
--- NOTE | 2016-03-10 03:30 | EDDOCDS ---
Physician Documentation [facility] Name: Helen Wyatt Age: 30 yrs Sex: Female : 1985 Arrival Date: 03/07/2016 Time: 07:14 Bed 8 Private MD: Disposition: 03/07/16 13:52 Discharged to Home/Self Care. Impression: Generalized abdominal pain, Vomiting. - Condition is Stable. - Discharge Instructions: Abdominal Pain, Adult, Nausea and Vomiting. - Prescriptions for ZOFRAN ODT 4 mg - dissolve 1 tablet by ORAL route 4 times per day As needed do not chew, do not swallow whole; 10 tablet. - Medication Reconciliation, Local Pharmacy Hours form. - Follow up: Emergency Department; When: Tomorrow; Reason: Recheck today's complaints. - Problem is new. - Symptoms have improved. Historical: - Allergies: PENICILLINS (Hives); SULFA (SULFONAMIDES) (Hives); - Home Meds: 1. multivitamin Oral tab 1 tablet daily 2. Sertraline 50 mg daily - PMHx: Asthma; PCOS; Seasonal Allergies; - PSHx: Gastric Bypass (2014); Tonsillectomy; Adenoidectomy; - Social history: Smoking status: Patient states former smoker of tobacco. No barriers to communication noted, The patient speaks fluent Yakut, Speaks appropriately for age. - Family history: Not pertinent. - : The pt / caregiver states he / she is not on anticoagulants. Home medication list is obtained from the patient. 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 8 in. (172.72 cm) (R); Pain 8/10; 08:35 BP 127 / 71; Pulse 65; Resp 16; Pain 7/10; jmk 13:59 BP 121 / 68; Pulse 60; Resp 16; Temp 99.5(O); Pulse Ox 100% on R/A; Pain 6/10; kr3 07:23 Body Mass Index 28.13 (83.91 kg, 172.72 cm) mlb1 MDM: 07:28 ECG WITH READING ER PHYS+CARDIAG ordered. EDMS 07:56 Undress patient appropriately for examination ordered. sd1 07:56 IV Saline Lock ordered. sd1 07:56 morphine 4 mg IVP every 15 minutes; Document pain score/vitals after each dose (Hold if sd1 SBP < 90mmHg) x2 ordered. 07:56 Ondansetron 4 mg IVP once ordered. sd1 07:56 NS 0.9% 1000 ml IV at 250 mL/hr continuous ordered. sd1 07:57 NOTHING BY MOUTH+DIET ordered. EDMS 07:57 Amylase Ordered. EDMS 07:57 Basic Metabolic Profile Ordered. EDMS 07:57 CBC with Diff Ordered. EDMS 07:57 HCG,Serum Qualitative Ordered. EDMS 07:57 Lipase Ordered. EDMS 07:57 Liver Profile Ordered. EDMS 08:18 DIFFERENTIAL NO CHARGE Ordered. EDMS 08:18 PLATELET ESTIMATE Ordered. EDMS 08:44 Financial registration complete. lg 08:51 Basic Metabolic Profile Reviewed. sd1 08:51 CBC with Diff Reviewed. sd1 08:51 Amylase Reviewed. sd1 08:51 HCG,Serum Qualitative Reviewed. sd1 08:51 Lipase Reviewed. sd1 08:51 Liver Profile Reviewed. sd1 08:51 PLATELET ESTIMATE Reviewed. sd1 08:54 CT ABD & PELVIS: IV and Oral Contrast Ordered. EDMS 09:41 Diatrizoate Meglumine & Sodium Liquid 10 ml PO once; mix in 290cc of water ordered. jmk 09:46 Metoclopramide 10 mg IV at 40 mg/hr once over 15 mins ordered. sd1 11:45 [facility] Payment Agreement was scanned into [employer] and attached to record. lg 12:37 Fluid Challenge ordered. sd1 03/08 13:15 EKG-ADULT Reviewed. sd1 13:15 CT ABD & PELVIS: IV and Oral Contrast Reviewed. sd1 03/09 08:39 ECG/EKG was scanned into [employer] and attached to record. gb 11:41 T-Sheet-- Draft Copy was scanned into [employer] and attached to record. gb Administered Medications: 03/07 08:08 Drug: morphine 4 mg Route: IVP; Site: left antecubital; jmk 08:08 Drug: Ondansetron 4 mg Route: IVP; Site: left antecubital; jmk 08:08 Drug: NS 0.9% 1000 ml Route: IV; Rate: 250 mL/hr; Site: left antecubital; jmk 08:34 Drug: morphine 4 mg Route: IVP; Site: left antecubital; jmk 09:41 Drug: Diatrizoate Meglumine & Sodium 10 ml [diatrizoate meglumine and diat.sodium 66 jmk %-10 % oral solution (10 mL)] Route: PO; 09:53 Drug: Metoclopramide 10 mg [metoclopramide 5 mg/mL injection solution] Route: IV; Rate: jmk 40 mg/hr; Infused Over: 15 mins; Site: left antecubital; Signatures: Dispatcher [employer] EDAmparo He MD MD sd1 Jerrod Shipman,RN RN Moriah Brooks, Reg Reg gb Arash Julien, Reg Reg lg Jaime Hood RN RN mlb1 Rosa Ordoñez,RN RN kr3 The chart was reviewed and I authenticate all verbal orders and agree with the evaluation and treatment provided.Attachments: 11:45 [facility] Payment Agreement lg 03/09 08:39 ECG/EKG gb 11:41 T-Sheet-- Draft Copy gb Chart Complete MTDD
--- NOTE | 2016-03-10 03:30 | EDDOCDS ---
Physician Documentation [facility] Name: Helen Wyatt Age: 30 yrs Sex: Female : 1985 Arrival Date: 03/07/2016 Time: 07:14 Bed 8 Private MD: Disposition: 03/07/16 13:52 Discharged to Home/Self Care. Impression: Generalized abdominal pain, Vomiting. - Condition is Stable. - Discharge Instructions: Abdominal Pain, Adult, Nausea and Vomiting. - Prescriptions for ZOFRAN ODT 4 mg - dissolve 1 tablet by ORAL route 4 times per day As needed do not chew, do not swallow whole; 10 tablet. - Medication Reconciliation, Local Pharmacy Hours form. - Follow up: Emergency Department; When: Tomorrow; Reason: Recheck today's complaints. - Problem is new. - Symptoms have improved. Historical: - Allergies: PENICILLINS (Hives); SULFA (SULFONAMIDES) (Hives); - Home Meds: 1. multivitamin Oral tab 1 tablet daily 2. Sertraline 50 mg daily - PMHx: Asthma; PCOS; Seasonal Allergies; - PSHx: Gastric Bypass (2014); Tonsillectomy; Adenoidectomy; - Social history: Smoking status: Patient states former smoker of tobacco. No barriers to communication noted, The patient speaks fluent Yoruba, Speaks appropriately for age. - Family history: Not pertinent. - : The pt / caregiver states he / she is not on anticoagulants. Home medication list is obtained from the patient. 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 8 in. (172.72 cm) (R); Pain 8/10; 08:35 BP 127 / 71; Pulse 65; Resp 16; Pain 7/10; jmk 13:59 BP 121 / 68; Pulse 60; Resp 16; Temp 99.5(O); Pulse Ox 100% on R/A; Pain 6/10; kr3 07:23 Body Mass Index 28.13 (83.91 kg, 172.72 cm) mlb1 MDM: 07:28 ECG WITH READING ER PHYS+CARDIAG ordered. EDMS 07:56 Undress patient appropriately for examination ordered. sd1 07:56 IV Saline Lock ordered. sd1 07:56 morphine 4 mg IVP every 15 minutes; Document pain score/vitals after each dose (Hold if sd1 SBP < 90mmHg) x2 ordered. 07:56 Ondansetron 4 mg IVP once ordered. sd1 07:56 NS 0.9% 1000 ml IV at 250 mL/hr continuous ordered. sd1 07:57 NOTHING BY MOUTH+DIET ordered. EDMS 07:57 Amylase Ordered. EDMS 07:57 Basic Metabolic Profile Ordered. EDMS 07:57 CBC with Diff Ordered. EDMS 07:57 HCG,Serum Qualitative Ordered. EDMS 07:57 Lipase Ordered. EDMS 07:57 Liver Profile Ordered. EDMS 08:18 DIFFERENTIAL NO CHARGE Ordered. EDMS 08:18 PLATELET ESTIMATE Ordered. EDMS 08:44 Financial registration complete. lg 08:51 Basic Metabolic Profile Reviewed. sd1 08:51 CBC with Diff Reviewed. sd1 08:51 Amylase Reviewed. sd1 08:51 HCG,Serum Qualitative Reviewed. sd1 08:51 Lipase Reviewed. sd1 08:51 Liver Profile Reviewed. sd1 08:51 PLATELET ESTIMATE Reviewed. sd1 08:54 CT ABD & PELVIS: IV and Oral Contrast Ordered. EDMS 09:41 Diatrizoate Meglumine & Sodium Liquid 10 ml PO once; mix in 290cc of water ordered. jmk 09:46 Metoclopramide 10 mg IV at 40 mg/hr once over 15 mins ordered. sd1 11:45 [place] [place] into [employer] and attached to record. lg 12:37 Fluid Challenge ordered. sd1 03/08 13:15 EKG-ADULT Reviewed. sd1 13:15 CT ABD & PELVIS: IV and Oral Contrast Reviewed. sd1 03/09 08:39 ECG/EKG was scanned into [employer] and attached to record. gb 11:41 T-Sheet-- Draft Copy was scanned into [employer] and attached to record. gb Administered Medications: 03/07 08:08 Drug: morphine 4 mg Route: IVP; Site: left antecubital; jmk 08:08 Drug: Ondansetron 4 mg Route: IVP; Site: left antecubital; jmk 08:08 Drug: NS 0.9% 1000 ml Route: IV; Rate: 250 mL/hr; Site: left antecubital; jmk 08:34 Drug: morphine 4 mg Route: IVP; Site: left antecubital; jmk 09:41 Drug: Diatrizoate Meglumine & Sodium 10 ml [diatrizoate meglumine and diat.sodium 66 jmk %-10 % oral solution (10 mL)] Route: PO; 09:53 Drug: Metoclopramide 10 mg [metoclopramide 5 mg/mL injection solution] Route: IV; Rate: jmk 40 mg/hr; Infused Over: 15 mins; Site: left antecubital; Signatures: Dispatcher [employer] EDAmparo He MD MD sd1 Jerrod Shipman,RN RN Moriah Brooks, Reg Reg gb Arash Julien, Reg Reg lg Jaime Hood RN RN mlb1 Rosa Ordoñez,RN RN kr3 The chart was reviewed and I authenticate all verbal orders and agree with the evaluation and treatment provided.Attachments: 11:45 [facility] Payment Agreement lg 03/09 08:39 ECG/EKG gb 11:41 T-Sheet-- Draft Copy gb Chart Complete MTDD
--- NOTE | 2016-03-10 03:30 | EDDOCDS ---
Nurse's Notes [facility] Name: Helen Garcias Age: 30 yrs Sex: Female : 1985 Arrival Date: 03/07/2016 Time: 07:14 Bed 8 Private MD: Diagnosis: Generalized abdominal pain;Vomiting Presentation: 03/07 07:19 Presenting complaint: Patient states: Awoke this am with abdominal, chest, back pain mlb1 and SOB. Adult Sepsis Screening: The patient does not have new or worsening altered mentation. Patient's respiratory rate is less than 22. Systolic blood pressure is greater than 100. Patient has a qSOFA score of 0- Negative Sepsis Screen. Suicide/Homicide risk assessment- the patient denies having any suicidal and/or homicidal ideations and does not present with any other emotional, behavioral or mental health complaints. Status: Patient is not a insurance and financial services agent or dependent. Transition of care: patient was not received from another setting of care. 07:19 Acuity: SOMMER Level 3 mlb1 07:19 Method Of Arrival: Walkin/Carried/Asstd mlb1 Triage Assessment: 07:22 General: Appears distressed, Behavior is appropriate for age, cooperative. Pain: mlb1 Location: back, chest and abdomen Pain currently is 8 out of 10 on a pain scale. HIV screening NA for this visit Offered previously. Respiratory: Onset: The symptoms/episode began/occurred this morning. Respiratory: Airway is patent Respiratory effort is even, unlabored, Reports shortness of breath. GI: Reports nausea. 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 multivitamin Oral tab 1 tablet daily 2. Sertraline 50 mg daily - PMHx: Asthma; PCOS; Seasonal Allergies; - PSHx: Gastric Bypass (2014); Tonsillectomy; Adenoidectomy; - Social history: Smoking status: Patient states former smoker of tobacco. No barriers to communication noted, The patient speaks fluent Persian, Speaks appropriately for age. - Family history: Not pertinent. - : The pt / caregiver states he / she is not on anticoagulants. Home medication list is obtained from the patient. 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 Screenin:09 Screening information is obtained from the patient. Fall risk: No risks identified. jmk Assistance ADL's: requires no assistance with activities of daily living. Abuse/DV Screen: The patient / caregiver reports he/she is: not in a situation that causes fear, pain or injury. Nutritional screening: No deficits noted. Advance Directives: Currently, there is a health care proxy, norris yoon. There is no active DNR order. There is no living will. There is no Power of Drafter Commercial. home support is adequate. Assessment: 08:09 General: Appears skin warm and dry color satisfactory Moist pink oral mucosa. Indicates jmk discomfort to anterior chest that increase with inspiration or movement. chest CTA. abd soft and non distended with bowel sounds present x 4. Increased pain diffusely with concentrated areas about umbilicus. Cardiovascular: Capillary refill < 3 seconds Heart tones S1 S2 Edema is absent. Rhythm is. GI: Abdomen is flat, non- distended Bowel sounds present X 4 quads. Abd is tender to palpation in umbilical area. 08:35 General: Appears reports 7/10 discomfort. states " It just made me sleepy" again jmk medicated. 09:53 General: Appears vomiting liquid emesis. medicated for same. jmk 10:30 General: Appears unable to accomodate oral contrast. withotu further vomiting, yet no jmk receptive to contrast. 12:32 General: Appears states pain has persisted and continues to increase with movement. no jmk further emesis. IV patent. awaiting CT interp. 12:40 General: Appears overall presentation unchanged from arrival. without vomiting since jmk cessation of oral contrast. popsicle provided.. 13:14 General: Appears 1/2 popsicle taken and retained. states abdomen feels " the same". jmk presently resting in left side laying position. awaiting dispo. 14:00 Reassessment: Patient appears in no apparent distress at this time. Pain: Location: kr3 abdomen Pain currently is 6 out of 10 on a pain scale. Respiratory: Respiratory effort is even, unlabored. Derm: Skin is normal. Vital Signs: 07:23 BP 133 / 82; Pulse 70; Resp 16; Temp 97.6(TE); Pulse Ox 99% on R/A; Weight 83.91 kg mlb1 (R); Height 5 ft. 8 in. (172.72 cm) (R); Pain 8/10; 08:35 BP 127 / 71; Pulse 65; Resp 16; Pain 7/10; jmk 13:59 BP 121 / 68; Pulse 60; Resp 16; Temp 99.5(O); Pulse Ox 100% on R/A; Pain 6/10; kr3 07:23 Body Mass Index 28.13 (83.91 kg, 172.72 cm) mlb1 ED Course: 07:16 Patient visited by Ghulam Valenzuela Reg. pm4 07:16 Patient moved to Waiting pm4 07:19 Patient visited by Jaime Hood, TESSIE. mlb1 07:20 Triage Initiated mlb1 07:24 Patient visited by Jaime Hood, TESSIE. mlb1 07:28 Patient moved to PD2 / 27 mlb1 07:42 Patient moved to 8 mlb1 07:51 Amparo Singh MD is Attending Physician. sd1 07:56 Patient visited by Amparo Singh MD. sd1 08:09 The patient / caregiver is instructed regarding the plan of care and ED course. jmk 08:09 Inserted saline lock: 20 gauge in left antecubital area. jmk 08:17 Patient visited by Jerrod Shipman,TESSIE. jmk 08:29 DIFFERENTIAL NO CHARGE Sent. jmk 09:24 Patient visited by Harjeet Betancru. jml1 10:09 Patient visited by Sandee Crockett PCA. jlf 11:33 Patient visited by Sandee Crockett PCA. jlf 11:45 [facility] Payment Agreement was scanned into [employer] and attached to record. lg 11:54 Patient visited by Sandee Crockett PCA. jlf 12:18 Patient visited by Sandee Crockett PCA. jlf 12:41 Patient visited by Jerrod Shipman,TESSIE. jmk 13:15 Patient visited by Jerrod Shipman,TESSIE. jmk 14:00 Discontinued lock intact, bleeding controlled, pressure dressing applied, No kr3 redness/swelling at site. No procedures done that require assistance. 20:05 EKG-ADULT Returned. EDMS 22:32 CT ABD & PELVIS: IV and Oral Contrast Returned. EDMS 03/09 08:39 ECG/EKG was scanned into [employer] and attached to record. gb 11:41 T-Sheet-- Draft Copy was scanned into [employer] and attached to record. gb Administered Medications: 03/07 08:08 Drug: morphine 4 mg Route: IVP; Site: left antecubital; jmk 08:08 Drug: Ondansetron 4 mg Route: IVP; Site: left antecubital; jmk 08:08 Drug: NS 0.9% 1000 ml Route: IV; Rate: 250 mL/hr; Site: left antecubital; jmk 08:34 Drug: morphine 4 mg Route: IVP; Site: left antecubital; jmk 09:41 Drug: Diatrizoate Meglumine & Sodium 10 ml [diatrizoate meglumine and diat.sodium 66 jmk %-10 % oral solution (10 mL)] Route: PO; 09:53 Drug: Metoclopramide 10 mg [metoclopramide 5 mg/mL injection solution] Route: IV; Rate: jmk 40 mg/hr; Infused Over: 15 mins; Site: left antecubital; Order Results: Lab Order: Amylase; SPEC'M 03/07/16 07:59 Test: AMYLASE; Value: 78; Range: 25-115; Units: U/L; Status: F Lab Order: Basic Metabolic Profile; SPEC'M 03/07/16 07:59 Test: GLUCOSE, FASTING; Value: 87; Range: 70-105; Units: MG/DL; Status: F Test: BLOOD UREA NITROGEN; Value: 8; Range: 7-18; Units: MG/DL; Status: F Test: CREATININE FOR GFR; Value: 0.69; Range: 0.55-1.02; Units: MG/DL; Status: F Test: SODIUM LEVEL; Range: 136-145; Units: MEQ/L; Status: I Test: POTASSIUM SERUM; Range: 3.5-5.1; Units: MEQ/L; Status: I Test: CHLORIDE LEVEL; Range: 98-107; Units: MEQ/L; Status: I Test: CARBON DIOXIDE LEVEL; Range: 21-32; Units: MEQ/L; Status: I Test: ANION GAP; Range: 8-16; Units: MEQ/L; Status: I Test: CALCIUM LEVEL; Range: 8.5-10.1; Units: MG/DL; Status: I Test: GLOMERULAR FILTRATION RATE; Value: > 60.0; Range: >60; Status: F Test: SODIUM LEVEL; Value: 144; Range: 136-145; Units: MEQ/L; Status: F Test: POTASSIUM SERUM; Value: 3.6; Range: 3.5-5.1; Units: MEQ/L; Status: F Test: CHLORIDE LEVEL; Value: 108; Range: 98-107; Abnormal: Above high normal; Units: MEQ/L; Status: F Test: CARBON DIOXIDE LEVEL; Value: 30; Range: 21-32; Units: MEQ/L; Status: F Test: ANION GAP; Value: 6; Range: 8-16; Abnormal: Below low normal; Units: MEQ/L; Status: F Test: CALCIUM LEVEL; Value: 8.6; Range: 8.5-10.1; Units: MG/DL; Status: F Test Note: ; Units are mL/min/1.73 m2 Chronic Kidney Disease Staging per NKF: Stage I & II GFR >=60 Normal to Mildly Decreased Stage III GFR 30-59 Moderately Decreased Stage IV GFR 15-29 Severely Decreased Stage V GFR <15 Very Little GFR Left ESRD GFR <15 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 Lab Order: CBC with Diff; SPEC'M 03/07/16 07:59 Test: WHITE BLOOD COUNT; Value: 4.4; Range: 4.0-10.0; Units: K/mm3; Status: F Test: RED BLOOD COUNT; Value: 4.08; Range: 4.00-5.40; Units: M/mm3; Status: F Test: HEMOGLOBIN; Value: 12.0; Range: 12.0-16.0; Units: g/dl; Status: F Test: HEMATOCRIT; Value: 36.5; Range: 36.0-47.0; Units: %; Status: F Test: MEAN CORPUSCULAR VOLUME; Value: 89.4; Range: 80.0-96.0; Units: fl; Status: F Test: MEAN CORPUSCULAR HEMOGLOBIN; Value: 29.3; Range: 27.0-33.0; Units: pg; Status: F Test: MEAN CORPUSCULAR HGB CONC; Value: 32.8; Range: 32.0-36.5; Units: g/dl; Status: F Test: RED CELL DISTRIBUTION WIDTH; Value: 13.4; Range: 11.5-14.5; Units: %; Status: F Test: PLATELET COUNT, AUTOMATED; Value: 118; Range: 150-450; Abnormal: Below low normal; Units: k/mm3; Status: F Test: PLATELET ESTIMATE; Range: NORMAL; Status: I Test: NEUTROPHILS; Value: 43; Range: 35-75; Units: %; Status: F Test: LYMPHOCYTES; Value: 34; Range: 16-52; Units: %; Status: F Test: MONOCYTES; Value: 5; Range: 0-8; Units: %; Status: F Test: EOSINOPHILS; Value: 9; Range: 0-5; Abnormal: Above high normal; Units: %; Status: F Test: BASOPHILS; Value: 1; Range: 0-4; Units: %; Status: F Test: ATYPICAL LYMPH; Value: 8; Range: 0-5; Abnormal: Above high normal; Units: %; Status: F Test: RBC MORPHOLOGY; Value: NORMAL; Status: F Lab Order: HCG,Serum Qualitative; SPEC' 03/07/16 07:59 Test: HCG, SERUM QUALITATIVE; Value: NEGATIVE; Range: NEGATIVE; Status: F Lab Order: Lipase; [facility]' 03/07/16 07:59 Test: LIPASE; Value: 103; Range: 73-393; Units: U/L; Status: F Lab Order: Liver Profile; [facility] 03/07/16 07:59 Test: AST/SGOT; Value: 17; Range: 15-37; Units: U/L; Status: F Test: ALT/SGPT; Value: 22; Range: 12-78; Units: U/L; Status: F Test: ALKALINE PHOSPHATASE; Value: 94; Range: 45-117; Units: U/L; Status: F Test: BILIRUBIN,TOTAL; Value: 0.3; Range: 0.2-1.0; Units: MG/DL; Status: F Test: BILIRUBIN,DIRECT; Value: < 0.1; Range: 0.0-0.2; Units: MG/DL; Status: F Test: TOTAL PROTEIN; Value: 6.9; Range: 6.4-8.2; Units: GM/DL; Status: F Test: ALBUMIN; Value: 3.5; Range: 3.2-5.2; Units: GM/DL; Status: F Test: ALBUMIN/GLOBULIN RATIO; Value: 1.03; Range: 1.00-1.93; Status: F Lab Order: PLATELET ESTIMATE; SPEC'M 03/07/16 07:59 Test: PLATELET ESTIMATE; Value: DECREASED; Range: NORMAL; Status: F Radiology Order: EKG-ADULT Test: EKG-ADULT REASON FOR EXAMINATION: Chest Pain; Stationary ECG Study; [facility] - ED; ; Test Date: 2016-03-07; Pat Name: HELEN GARCIAS Department:; Room: -; Gender: F 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; : 1985 Requested By: Amparo Singh; Order Number: [id number] Reading MD: Amparo Singh; Measurements; Intervals [place]; Rate: 58 P: 58; TN: 180 QRS: 63; QRSD: 114 T: 36; QT: 418; QTc: 413; Interpretive Statements; SINUS BRADYCARDIA; MODERATE INTRAVENTRICULAR CONDUCTION DELAY; DECREASED RATE 08/05/15; Electronically Signed On 03-07-2016 19:56:17 EST by Amparo Singh; Radiology Order: CT ABD & PELVIS: IV and Oral Contrast Test: CT ABD & PELVIS: IV and Oral Contrast REASON FOR EXAMINATION: Abdomen Pain; CT abdomen and pelvis with IV and oral contrast, 03/07/2016; ; Indication: Abdominal pain; ; Comparison: None; ; Technique: After drinking two cups of oral contrast, each containing 10 ml; gastrographin in 290 ml water, 100 ml Isovue 370 mg/ml was injected . 3 mm spiral; axial sections were performed through the abdomen and pelvis.; ; Findings: Small amount of dependent atelectasis is noted in lung bases; bilaterally. There is mild diffuse fatty infiltration of liver. Liver is; enlarged, 21.5 cm cranial caudal dimension. Spleen is upper normal size. The; pancreas and gallbladder unremarkable. Adrenal glands are normal. Kidneys are; without hydro nephrosis or obstructing ureteral calculi bilaterally.; ; Postsurgical changes are present in the left upper quadrant consistent with prior; gastric bypass surgery. There are no findings to suggest small bowel; obstruction. P.0. contrast is seen to the mid ileum in the left upper pelvis.; Abdominal aorta is of normal course and caliber . There is no retroperitoneal; adenopathy. 3 mm calculus is seen on image 122, series 2 in lower pelvis; within the dependent portion of bladder or in anterior uterus in a subserosal; location.; ; The bladder is without mural thickening. Uterus and adnexae are within normal; limits for age. Appendix is without inflammation. Mild mural thickening within; the sigmoid colon is most compatible with underdistension There is no free; intraperitoneal air or ascites.; ; Impression:; ; Mild mural thickening and sigmoid colon is most compatible with underdistension.; In appropriate clinical setting mild colitis may also be considered within the; differential diagnosis.; ; Mild diffuse fatty infiltration of liver; hepatomegaly with liver 21.5 cm cranial; caudal dimension; ; Prior gastric bypass surgery without evidence of bowel obstruction, extraluminal; contrast or free intraperitoneal air; ; ; ; ; ; ; Signed by; Regina Avina MD 03/07/2016 09:31 P; Outcome: 13:52 Discharge ordered by Provider. sd1 14:00 Discharge Assessment: patient administered narcotics - yes. Pt provided with safe kr3 discharge. The following High Risk Discharge criteria are identified: None. Discharged to home with family. Condition: stable. Discharge instructions given to patient, family, Instructed on discharge instructions, follow up and referral plans. medication usage, Demonstrated understanding of instructions, medications, Pt was receptive of discharge instructions/ teaching. Prescriptions given X 1. CT Study completed. Property sent home with patient. 14:01 Patient left the ED. kr3 Signatures: Dispatcher [employer] EDAmparo He MD MD sd1 Jerrod Shipman,RN RN Moriah Brooks, Reg Reg gb Arash Julien, Reg Reg lg Jaime Hood, RN RN mlb1 Rosa Ordoñez,RN RN kr3 Harjeet Betancur jml1 Sandee Crockett, ENTERPRISE SALES PERSON ENTERPRISE SALES PERSON jlf Ghulam Valenzuela, Reg Reg pm4 Corrections: (The following items were deleted from the chart) 08:37 08:09 Advance Directives: Currently, there is no health care proxy. There is no active adama DNR order. There is no living will. There is no Power of Drafter Commercial. katarzyna Chart Complete MTDD
== END 2016-03-07 14:01 | disposition home or self-care (01) ==
LOC: M ED 07:14
DX: R10.9 Unspecified abdominal pain (principal); R11.2 Nausea with vomiting, unspecified; J45.909 Unspecified asthma, uncomplicated; E28.2 Polycystic ovarian syndrome; Z98.84 Bariatric surgery status; Z88.0 Allergy status to penicillin; Z88.2 Allergy status to sulfonamides; Z79.899 Other long term (current) drug therapy
CPT/HCPCS: 74177; 80048; 80076; 82150; 83690; 84703; 85025; 93005; 96374; 96375; 99284; J2405; J2765; Q9967

== ENCOUNTER 2016-03-10 01:38 | Emergency (ER) | payer OTHER ==
[2016-03-10 02:24] LABS: BASO % 0.6 % (0.0-1.0); EOS # 0.2 K/mm3 (0.0-0.50); EOS % 5.1 % (0.0-3.0); LARGE UNSTAINED CELL # 0.1 K/mm3 (0.0-0.4); LARGE UNSTAINED CELL % 2.3 % (0.0-4.0); LYMPH # 1.4 K/mm3 (1.5-4.5); LYMPH % 35.7 % (24.0-44.0); MEAN CORPUSCULAR HGB CONC 32.7 g/dl (32.0-36.5); MEAN CORPUSCULAR VOLUME 88.5 fl (80.0-96.0); MONO # 0.2 K/mm3 (0.0-0.8); MONO % 5.1 % (0.0-5.0); NEUTROPHILS # 2.1 K/mm3 (1.8-7.7); NEUTROPHILS % 51.2 % (36.0-66.0); PLATELET COUNT, AUTOMATED 132 k/mm3 (150-450); RED CELL DISTRIBUTION WIDTH 12.5 % (11.5-14.5)
[2016-03-10] MEDS ORDERED: ONDANSETRON 4MG/2ML VIAL (J2405) As Ordered ONE (02:24)
[2016-03-10] MEDS ORDERED: MORPHINE 4 MG/ML 1ML SYRINGE As Ordered ONE ×2 (02:24→04:48)
[2016-03-10] MEDS ORDERED: GASTROGRAFIN SOLUTION 30ML (Q9963) As Ordered ONE (02:24)
[2016-03-10 02:41] LABS: CONTROL LINE HCG INT CTR LINE PRESENT
[2016-03-10 02:48] LABS: ALBUMIN 3.7 GM/DL (3.2-5.2); ALKALINE PHOSPHATASE 93 U/L (45-117); ALT/SGPT 19 U/L (12-78); AMYLASE 75 U/L (25-115); ANION GAP 9 MEQ/L (8-16); AST/SGOT 12 U/L (15-37); BILIRUBIN,DIRECT 0.1 MG/DL (0.0-0.2); BILIRUBIN,TOTAL 0.4 MG/DL (0.2-1.0); BLOOD UREA NITROGEN 6 MG/DL (7-18); CALCIUM LEVEL 8.5 MG/DL (8.5-10.1); CARBON DIOXIDE LEVEL 30 MEQ/L (21-32); CHLORIDE LEVEL 105 MEQ/L (98-107); CREATININE FOR GFR 0.64 MG/DL (0.55-1.02); GLOMERULAR FILTRATION RATE > 60.0 (>60); GLUCOSE, FASTING 84 MG/DL (70-105); POTASSIUM SERUM 3.5 MEQ/L (3.5-5.1); SODIUM LEVEL 144 MEQ/L (136-145); TOTAL PROTEIN 7.4 GM/DL (6.4-8.2)
[2016-03-10] MEDS ORDERED: ISOVUE-370 76% 100ML VIAL (Q9967) As Ordered ONE (03:54)
--- NOTE | 2016-03-10 04:00 | REPUSA ---
CLINICAL HISTORY: Abdominal pain. TECHNIQUE: Realtime sonographic images were obtained in multiple projections. COMMENTS: The liver is of normal size, parenchyma demonstrates normal echogenicity. No discrete hepatic mass is seen. There is no intra or extrahepatic biliary ductal dilatation. CBD measures 3.3mm. The gallbladder is p hysiologically distended without evidence of calculi. The gallbladder wall is not thickened and there is no pericholecystic fluid. There is no abdominal ascites. The right kidney measures 12.6x6.2x4.1 cm , free of hydronephrosis. IMPRESSION: Unremarkable study. Thank you for your kind referral of this patient.
[2016-03-10] MEDS ORDERED: OXYCODONE/APAP 5MG/325MG(BULK) 1 TAB TAB As Ordered ONE (06:26)
--- NOTE | 2016-03-10 06:36 | EDDOCDS ---
Physician Documentation [facility] Name: Helen Wyatt Age: 30 yrs Sex: Female : 1985 Arrival Date: 03/10/2016 Time: 01:38 Bed 10 Private MD: Disposition: 03/10/16 06:22 Discharged to Home/Self Care. Impression: Abdominal and pelvic pain. - Condition is Stable. - Discharge Instructions: Abdominal Pain, Adult. - Prescriptions for Percocet 5- 325 mg Oral Tablet - take 1 tablet by ORAL route every 6 hours As needed MDD: 4 tabs; 20 tablet. Reglan 10 mg Oral Tablet - take 1 tablet by ORAL route every 6 hours take 30 minutes before meals and at bedtime; 20 tablet. Zofran 4 mg Oral Tablet - take 1 tablet by ORAL route 4 times per day As needed; 10 tablet. - Medication Reconciliation, Local Pharmacy Hours form. - Follow up: Syed Zuñiga MD; When: 1 week; Reason: To establish care. - Problem is an acute exacerbation. - Symptoms have improved. Historical: - Allergies: PENICILLINS (Hives); SULFA (SULFONAMIDES) (Hives); - Home Meds: 1. multivitamin Oral tab 1 tab daily 2. Zofran Oral - PMHx: Asthma; PCOS; Seasonal Allergies; - PSHx: ; Gastric Bypass; Tonsillectomy; - Social history: Smoking status: Patient states was never smoker of tobacco. No barriers to communication noted, The patient speaks fluent Sinhala, Speaks appropriately for age. - Family history: Not pertinent. - : The pt / caregiver states he / she is not on anticoagulants. Home medication list is obtained from the patient. 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 8 in. (172.72 cm); 05:15 Pain 5/10; mlc 06:33 BP 112 / 70; Pulse 70; Resp 18; Temp 98.2; Pulse Ox 97% ; Pain 3/10; mlc 01:48 Body Mass Index 27.98 (83.46 kg, 172.72 cm) cz MDM: 02:15 NS 0.9% 1000 ml IV at bolus once ordered. mm11 02:15 Ondansetron 4 mg IVP once ordered. mm11 02:15 morphine 4 mg IVP every 30 minutes; Document pain score/vitals after each dose (Hold if mm11 SBP < 90mmHg) x2 ordered. 02:15 IV Saline Lock ordered. mm11 02:15 Undress patient appropriately for examination ordered. mm11 02:16 Amylase Ordered. EDMS 02:16 Basic Metabolic Profile Ordered. EDMS 02:16 CBC with Diff Ordered. EDMS 02:16 HCG,Serum Qualitative Ordered. EDMS 02:16 Lipase Ordered. EDMS 02:16 Liver Profile Ordered. EDMS 02:16 CT ABD & PELVIS: IV and Oral Contrast Ordered. EDMS 02:16 Gallbladder US Ordered. EDMS 02:16 NOTHING BY MOUTH+DIET ordered. EDMS 02:21 Diatrizoate Meglumine & Sodium Liquid 10 ml PO once; mix in 290cc of water ordered. mlc 02:21 Diatrizoate Meglumine & Sodium Liquid 10 ml PO once; mix in 290cc of water [place]. [facility] 02:23 Financial registration complete. [facility] 02:49 CBC with Diff Reviewed. mm11 02:49 HCG,Serum Qualitative Reviewed. mm11 02:59 Basic Metabolic Profile Reviewed. mm11 02:59 Liver Profile Reviewed. mm11 02:59 Amylase Reviewed. mm11 02:59 HCG,Serum Qualitative Reviewed. mm11 02:59 Lipase Reviewed. mm11 06:08 Gallbladder US Reviewed. mm11 06:21 oxyCODONE-acetaminophen 4 pack 5 mg-325 mg 1 packets PO once; Dispense with pt, take as mm11 per instruction on package ordered. Administered Medications: 02:37 Drug: morphine 4 mg [morphine 4 mg/mL intravenous cartridge (1 mL)] Route: IVP; Site: mlc right antecubital; 03:29 Follow up: Response: No significant change. [facility] 02:37 Not Given (Other Intervention Used): Diatrizoate Meglumine & Sodium Liquid 10 ml PO mlc once; mix in 290cc of water 02:37 Drug: Diatrizoate Meglumine & Sodium 10 ml [diatrizoate meglumine and diat.sodium 66 mlc %-10 % oral solution (10 mL)] Route: PO; 02:38 Drug: NS 0.9% 1000 ml [sodium chloride 0.9 % intravenous solution] Route: IV; Rate: mlc bolus; Site: right antecubital; 02:38 Drug: Ondansetron 4 mg [ondansetron HCl 2 mg/mL intravenous solution (2 mL)] Route: mlc IVP; Site: right antecubital; 04:52 Drug: morphine 4 mg [morphine 4 mg/mL intravenous cartridge (1 mL)] Route: IVP; Site: mlc right antecubital; 05:15 Follow up: Pain 5/10 Adult; Response: Pain is decreased [facility] Signatures: Dispatcher [employer] EDFeliciano Oseguera RN RN cz Maynard, Matthew, DO DO mm11 Shameka Bañuelos RN RN [facility] Suellen Green [facility] Maria
--- NOTE | 2016-03-10 06:36 | EDDOCDS ---
Nurse's Notes [facility] Name: Helen Wyatt Age: 30 yrs Sex: Female : 1985 Arrival Date: 03/10/2016 Time: 01:38 Bed 10 Private MD: Diagnosis: Abdominal and pelvic pain Presentation: 03/10 01:45 Presenting complaint: Patient states: continues with abdominal pain seen by own cz provideer post appt. Risk factors: the patient reports no vaginal bleeding. Adult Sepsis Screening: The patient does not have new or worsening altered mentation. Patient's respiratory rate is less than 22. Systolic blood pressure is greater than 100. Patient has a qSOFA score of 0- Negative Sepsis Screen. Suicide/Homicide risk assessment- the patient denies having any suicidal and/or homicidal ideations and does not present with any other emotional, behavioral or mental health complaints. 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 Transition of care: patient was not received from another setting of care. 01:45 Acuity: SOMMER Level 3 cz 01:45 Method Of Arrival: Walkin/Carried/Asstd cz Triage Assessment: 01:48 General: Appears uncomfortable. Pain: Location: abdomen Pain currently is 8 out of 10 cz on a pain scale. HIV screening NA for this visit Offered previously. 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 multivitamin Oral tab 1 tab daily 2. Zofran Oral - PMHx: Asthma; PCOS; Seasonal Allergies; - PSHx: ; Gastric Bypass; Tonsillectomy; - Social history: Smoking status: Patient states was never smoker of tobacco. No barriers to communication noted, The patient speaks fluent Upper Sorbian, Speaks appropriately for age. - Family history: Not pertinent. - : The pt / caregiver states he / she is not on anticoagulants. Home medication list is obtained from the patient. 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 Screenin:38 Screening information is obtained from the patient. Fall risk: No risks identified. mlc Assistance ADL's: requires no assistance with activities of daily living. Abuse/DV Screen: The patient / caregiver reports he/she is: not in a situation that causes fear, pain or injury. Nutritional screening: No deficits noted. home support is adequate. 02:45 Advance Directives: Currently, there is a health care proxy, Gretel Greene, mother. mlc There is an active Power of Computing Machine Operator, Gretel Greene, mother. Assessment: 02:38 General: Appears in no apparent distress, uncomfortable, Behavior is cooperative. Pain: mlc Location: epigastric area and right upper quadrant Pain currently is 6 out of 10 on a pain scale. Neurological: Level of Consciousness is awake, alert, obeys commands, Oriented to person, place, time. Respiratory: Airway is patent Respiratory effort is even, unlabored, Respiratory pattern is regular. GI: Abdomen is non- distended Bowel sounds present X 4 quads. Abd is soft X 4 quads. Derm: Skin is normal. 03:25 Reassessment: Patient appears in no apparent distress at this time. pt resting mlc comfortably in bed, resp easy/unlabored. . 04:52 Reassessment: Patient appears in no apparent distress at this time. pt reports increase mlc in pain, pt medicated per order. resp easy/unlabored. . 05:15 Reassessment: Patient appears in no apparent distress at this time. Patient states mlc feeling better. pt reports pain is 5/10, states she is comfortable. resp easy/unlabored. . 06:33 General: Appears in no apparent distress, comfortable, Behavior is cooperative. Pain: mlc Pain currently is 3 out of 10 on a pain scale. Neurological: Level of Consciousness is awake, alert, Oriented to person, place, time. Respiratory: Airway is patent Respiratory effort is even, unlabored, Respiratory pattern is regular. Vital Signs: 01:48 BP 129 / 85; Pulse 65; Resp 16; Temp 96.6(T); Pulse Ox 99% on R/A; Weight 83.46 kg; cz Height 5 ft. 8 in. (172.72 cm); 05:15 Pain 5/10; mlc 06:33 BP 112 / 70; Pulse 70; Resp 18; Temp 98.2; Pulse Ox 97% ; Pain 3/10; mlc 01:48 Body Mass Index 27.98 (83.46 kg, 172.72 cm) Vitals: 01:48 Log In Time: March 10, 2016 at 01:40. ED Course: 01:40 Patient visited by Thi Arceo, Reg. hs2 01:40 Patient moved to Waiting hs2 01:47 Triage Initiated cz 01:54 Shameka Bañuelos RN is Primary Nurse. ml3 01:54 Patient moved to 10 ml3 02:02 Greg Urena DO is Attending Physician. mm11 02:02 Patient visited by Greg Urena DO. mm11 02:12 Patient visited by Greg Urena DO. mm11 02:20 Amylase Sent. mlc 02:20 Basic Metabolic Profile Sent. mlc 02:20 CBC with Diff Sent. mlc 02:20 HCG,Serum Qualitative Sent. mlc 02:20 Lipase Sent. mlc 02:20 Liver Profile Sent. mlc 02:38 The patient / caregiver is instructed regarding the plan of care and ED course. mlc 02:38 Inserted saline lock: 18 gauge in right antecubital area and blood collected. The [facility] patient tolerated the procedure well. 02:39 Patient visited by Shameka Bañuelos RN. mlc 02:45 Patient visited by Shameka Bañuelos RN. mlc 04:13 Patient visited by Carroll Chen PCA. kb5 04:29 Gallbladder US Returned. EDMS 04:53 Patient visited by Shameka Bañuelos RN. mlc 04:56 Patient visited by Shameka Bañuelos RN. mlc 05:16 Patient visited by Shameka Bañuelos RN. mlc 06:21 Patient visited by Greg Urena DO. mm11 06:22 Syed Zuñiga MD is Referral Physician. mm11 06:33 Discontinued IV lock intact, bleeding controlled, pressure dressing applied, No mlc redness/swelling at site. No procedures done that require assistance. 06:35 Patient visited by Shameka Bañuelos RN. mlc Administered Medications: 02:37 Drug: morphine 4 mg [morphine 4 mg/mL intravenous cartridge (1 mL)] Route: IVP; Site: mlc right antecubital; 03:29 Follow up: Response: No significant change. mlc 02:37 Not Given (Other Intervention Used): Diatrizoate Meglumine & Sodium Liquid 10 ml PO mlc once; mix in 290cc of water 02:37 Drug: Diatrizoate Meglumine & Sodium 10 ml [diatrizoate meglumine and diat.sodium 66 mlc %-10 % oral solution (10 mL)] Route: PO; 02:38 Drug: NS 0.9% 1000 ml [sodium chloride 0.9 % intravenous solution] Route: IV; Rate: mlc bolus; Site: right antecubital; 02:38 Drug: Ondansetron 4 mg [ondansetron HCl 2 mg/mL intravenous solution (2 mL)] Route: mlc IVP; Site: right antecubital; 04:52 Drug: morphine 4 mg [morphine 4 mg/mL intravenous cartridge (1 mL)] Route: IVP; Site: mlc right antecubital; 05:15 Follow up: Pain 07/11 Adult; Response: Pain is decreased [facility] Order Results: Lab Order: Amylase; SPEC'M 03/10/16 02:19 Test: AMYLASE; Value: 75; Range: 25-115; Units: U/L; Status: F Lab Order: Basic Metabolic Profile; SPEC'M 03/10/16 02:19 Test: GLUCOSE, FASTING; Value: 84; Range: 70-105; Units: MG/DL; Status: F Test: BLOOD UREA NITROGEN; Value: 6; Range: 7-18; Abnormal: Below low normal; Units: MG/DL; Status: F Test: CREATININE FOR GFR; Value: 0.64; Range: 0.55-1.02; Units: MG/DL; Status: F Test: SODIUM LEVEL; Range: 136-145; Units: MEQ/L; Status: I Test: POTASSIUM SERUM; Range: 3.5-5.1; Units: MEQ/L; Status: I Test: CHLORIDE LEVEL; Range: 98-107; Units: MEQ/L; Status: I Test: CARBON DIOXIDE LEVEL; Range: 21-32; Units: MEQ/L; Status: I Test: ANION GAP; Range: 8-16; Units: MEQ/L; Status: I Test: CALCIUM LEVEL; Range: 8.5-10.1; Units: MG/DL; Status: I Test: GLOMERULAR FILTRATION RATE; Value: > 60.0; Range: >60; Status: F Test: SODIUM LEVEL; Value: 144; Range: 136-145; Units: MEQ/L; Status: F Test: POTASSIUM SERUM; Value: 3.5; Range: 3.5-5.1; Units: MEQ/L; Status: F Test: CHLORIDE LEVEL; Value: 105; Range: 98-107; Units: MEQ/L; Status: F Test: CARBON DIOXIDE LEVEL; Value: 30; Range: 21-32; Units: MEQ/L; Status: F Test: ANION GAP; Value: 9; Range: 8-16; Units: MEQ/L; Status: F Test: CALCIUM LEVEL; Value: 8.5; Range: 8.5-10.1; Units: MG/DL; Status: F Test Note: ; Units are mL/min/1.73 m2 Chronic Kidney Disease Staging per NKF: Stage I & II GFR >=60 Normal to Mildly Decreased Stage III GFR 30-59 Moderately Decreased Stage IV GFR 15-29 Severely Decreased Stage V GFR <15 Very Little GFR Left ESRD GFR <15 on FLIGHT INSPECTOR Lab Order: CBC with Diff; SPEC'M 03/10/16 02:19 Test: WHITE BLOOD COUNT; Value: 4.0; Range: 4.0-10.0; Units: K/mm3; Status: F Test: RED BLOOD COUNT; Value: 4.43; Range: 4.00-5.40; Units: M/mm3; Status: F Test: HEMOGLOBIN; Value: 12.8; Range: 12.0-16.0; Units: g/dl; Status: F Test: HEMATOCRIT; Value: 39.2; Range: 36.0-47.0; Units: %; Status: F Test: MEAN CORPUSCULAR VOLUME; Value: 88.5; Range: 80.0-96.0; Units: fl; Status: F Test: MEAN CORPUSCULAR HEMOGLOBIN; Value: 29.0; Range: 27.0-33.0; Units: pg; Status: F Test: MEAN CORPUSCULAR HGB CONC; Value: 32.7; Range: 32.0-36.5; Units: g/dl; Status: F Test: RED CELL DISTRIBUTION WIDTH; Value: 12.5; Range: 11.5-14.5; Units: %; Status: F Test: PLATELET COUNT, AUTOMATED; Value: 132; Range: 150-450; Abnormal: Below low normal; Units: k/mm3; Status: F Test: NEUTROPHILS %; Value: 51.2; Range: 36.0-66.0; Units: %; Status: F Test: LYMPH %; Value: 35.7; Range: 24.0-44.0; Units: %; Status: F Test: MONO %; Value: 5.1; Range: 0.0-5.0; Abnormal: Above high normal; Units: %; Status: F Test: EOS %; Value: 5.1; Range: 0.0-3.0; Abnormal: Above high normal; Units: %; Status: F Test: BASO %; Value: 0.6; Range: 0.0-1.0; Units: %; Status: F Test: LARGE UNSTAINED CELL %; Value: 2.3; Range: 0.0-4.0; Units: %; Status: F Test: NEUTROPHILS #; Value: 2.1; Range: 1.8-7.7; Units: K/mm3; Status: F Test: LYMPH #; Value: 1.4; Range: 1.5-4.5; Abnormal: Below low normal; Units: K/mm3; Status: F Test: MONO #; Value: 0.2; Range: 0.0-0.8; Units: K/mm3; Status: F Test: EOS #; Value: 0.2; Range: 0.0-0.50; Units: K/mm3; Status: F Test: BASO #; Value: 0.0; Range: 0.0-0.2; Units: K/mm3; Status: F Test: LARGE UNSTAINED CELL #; Value: 0.1; Range: 0.0-0.4; Units: K/mm3; Status: F Lab Order: HCG,Serum Qualitative; SPEC'M 03/10/16 02:19 Test: HCG, SERUM QUALITATIVE; Value: NEGATIVE; Range: NEGATIVE; Status: F Lab Order: Lipase; SPEC' 03/10/16 02:19 Test: LIPASE; Value: 123; Range: 73-393; Units: U/L; Status: F Lab Order: Liver Profile; SPEC'M 03/10/16 02:19 Test: AST/SGOT; Value: 12; Range: 15-37; Abnormal: Below low normal; Units: U/L; Status: F Test: ALT/SGPT; Value: 19; Range: 12-78; Units: U/L; Status: F Test: ALKALINE PHOSPHATASE; Value: 93; Range: 45-117; Units: U/L; Status: F Test: BILIRUBIN,TOTAL; Value: 0.4; Range: 0.2-1.0; Units: MG/DL; Status: F Test: BILIRUBIN,DIRECT; Value: 0.1; Range: 0.0-0.2; Units: MG/DL; Status: F Test: TOTAL PROTEIN; Value: 7.4; Range: 6.4-8.2; Units: GM/DL; Status: F Test: ALBUMIN; Value: 3.7; Range: 3.2-5.2; Units: GM/DL; Status: F Test: ALBUMIN/GLOBULIN RATIO; Value: 1.00; Range: 1.00-1.93; Status: F Radiology Order: Gallbladder US Test: Gallbladder US REASON FOR EXAMINATION: Biliary Colic; ; CLINICAL HISTORY: Abdominal pain.; TECHNIQUE: Realtime sonographic images were obtained in multiple projections.; COMMENTS:; The liver is of normal size, parenchyma demonstrates normal echogenicity. No discrete hepatic mass is; seen.; There is no intra or extrahepatic biliary ductal dilatation. CBD measures 3.3mm. The gallbladder is p; hysiologically distended without evidence of calculi. The gallbladder wall is not thickened and there; is no pericholecystic fluid. There is no abdominal ascites.; The right kidney measures 12.6x6.2x4.1 cm , free of hydronephrosis.; IMPRESSION:; Unremarkable study.; Thank you for your kind referral of this patient.; ; Outcome: 06:22 Discharge ordered by Provider. mm11 06:33 Discharge Assessment: Patient awake, alert and oriented x 3. No cognitive and/or mlc functional deficits noted. Patient verbalized understanding of disposition instructions. patient administered narcotics - no. Discharge Assessment: patient administered narcotics - yes. Pt provided with safe discharge. The following High Risk Discharge criteria are identified: None. Discharged to home ambulatory. Condition: good Condition: stable. Discharge instructions given to patient, Instructed on discharge instructions, follow up and referral plans. medication usage, no driving heavy equipment, Demonstrated understanding of instructions, medications, Pt was receptive of discharge instructions/ teaching. Prescriptions given X 3. CT Study completed. Ultrasound Study completed. Property sent home with patient. 06:35 Patient left the ED. [facility] Signatures: Dispatcher [employer] EDMS Feliciano Kauffman, RN RN cz Gaviota Tinsley, Ecdis N Navigation Operator Unit ml3 Carroll Chen, MECHANICAL ASSEMBLY MECHANICAL ASSEMBLY kb5 Greg Urena, DO DO mm11 Shameka Bañuelos,ETSSIE RN Thi Bliss, Reg Reg hs2 MTDD
--- NOTE | 2016-03-13 10:37 | EDDOCDS ---
Physician Documentation [facility] Name: Helen Wyatt Age: 30 yrs Sex: Female : 1985 Arrival Date: 03/10/2016 Time: 01:38 Bed 10 Private MD: Disposition: 03/10/16 06:22 Discharged to Home/Self Care. Impression: Abdominal and pelvic pain. - Condition is Stable. - Discharge Instructions: Abdominal Pain, Adult. - Prescriptions for Percocet 5- 325 mg Oral Tablet - take 1 tablet by ORAL route every 6 hours As needed MDD: 4 tabs; 20 tablet. Reglan 10 mg Oral Tablet - take 1 tablet by ORAL route every 6 hours take 30 minutes before meals and at bedtime; 20 tablet. Zofran 4 mg Oral Tablet - take 1 tablet by ORAL route 4 times per day As needed; 10 tablet. - Medication Reconciliation, Local Pharmacy Hours form. - Follow up: Syed Zuñiga MD; When: 1 week; Reason: To establish care. - Problem is an acute exacerbation. - Symptoms have improved. Historical: - Allergies: PENICILLINS (Hives); SULFA (SULFONAMIDES) (Hives); - Home Meds: 1. multivitamin Oral tab 1 tab daily 2. Zofran Oral - PMHx: Asthma; PCOS; Seasonal Allergies; - PSHx: ; Gastric Bypass; Tonsillectomy; - Social history: Smoking status: Patient states was never smoker of tobacco. No barriers to communication noted, The patient speaks fluent Syriac, Speaks appropriately for age. - Family history: Not pertinent. - : The pt / caregiver states he / she is not on anticoagulants. Home medication list is obtained from the patient. 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 8 in. (172.72 cm); 05:15 Pain 5/10; mlc 06:33 BP 112 / 70; Pulse 70; Resp 18; Temp 98.2; Pulse Ox 97% ; Pain 3/10; mlc 01:48 Body Mass Index 27.98 (83.46 kg, 172.72 cm) cz MDM: 02:15 NS 0.9% 1000 ml IV at bolus once ordered. mm11 02:15 Ondansetron 4 mg IVP once ordered. mm11 02:15 morphine 4 mg IVP every 30 minutes; Document pain score/vitals after each dose (Hold if mm11 SBP < 90mmHg) x2 ordered. 02:15 IV Saline Lock ordered. mm11 02:15 Undress patient appropriately for examination ordered. mm11 02:16 Amylase Ordered. EDMS 02:16 Basic Metabolic Profile Ordered. EDMS 02:16 CBC with Diff Ordered. EDMS 02:16 HCG,Serum Qualitative Ordered. EDMS 02:16 Lipase Ordered. EDMS 02:16 Liver Profile Ordered. EDMS 02:16 CT ABD & PELVIS: IV and Oral Contrast Ordered. EDMS 02:16 Gallbladder US Ordered. EDMS 02:16 NOTHING BY MOUTH+DIET ordered. EDMS 02:21 Diatrizoate Meglumine & Sodium Liquid 10 ml PO once; mix in 290cc of water ordered. mlc 02:21 Diatrizoate Meglumine & Sodium Liquid 10 ml PO once; mix in 290cc of water ordered. mlc 02:23 Financial registration complete. [facility] 02:49 CBC with Diff Reviewed. mm11 02:49 HCG,Serum Qualitative Reviewed. mm11 02:59 Basic Metabolic Profile Reviewed. mm11 02:59 Liver Profile Reviewed. mm11 02:59 Amylase Reviewed. mm11 02:59 HCG,Serum Qualitative Reviewed. mm11 02:59 Lipase Reviewed. mm11 06:08 Gallbladder US Reviewed. mm11 06:21 oxyCODONE-acetaminophen 4 pack 5 mg-325 mg 1 packets PO once; Dispense with pt, take as mm11 per instruction on package ordered. 11:34 T-Sheet-- Draft Copy was scanned into [employer] and attached to record. gb 11:35 Radiology Report was scanned into [employer] and attached to record. gb Administered Medications: 02:37 Drug: morphine 4 mg [morphine 4 mg/mL intravenous cartridge (1 mL)] Route: IVP; Site: mlc right antecubital; 03:29 Follow up: Response: No significant change. mlc 02:37 Not Given (Other Intervention Used): Diatrizoate Meglumine & Sodium Liquid 10 ml PO mlc once; mix in 290cc of water 02:37 Drug: Diatrizoate Meglumine & Sodium 10 ml [diatrizoate meglumine and diat.sodium 66 mlc %-10 % oral solution (10 mL)] Route: PO; 02:38 Drug: NS 0.9% 1000 ml [sodium chloride 0.9 % intravenous solution] Route: IV; Rate: mlc bolus; Site: right antecubital; 02:38 Drug: Ondansetron 4 mg [ondansetron HCl 2 mg/mL intravenous solution (2 mL)] Route: mlc IVP; Site: right antecubital; 04:52 Drug: morphine 4 mg [morphine 4 mg/mL intravenous cartridge (1 mL)] Route: IVP; Site: mlc right antecubital; 05:15 Follow up: Pain 5/10 Adult; Response: Pain is decreased [facility] 06:35 Drug: oxyCODONE-acetaminophen 4 pack 1 packets [oxycodone-acetaminophen 5 mg-325 mg mlc tablet (1 tabs)] {Co-Signature: cp1 (Gretel Carranza LPN).} Route: PO; Signatures: Dispatcher [employer] EDFeliciano Oseguera RN RN cz Moriah Rivear, Reg Reg gb Greg Urena, DO mm11 Shameka Bañuelos RN RN [facility] Suellen Green [facility] Gretel Carranza LPN cp1 The chart was reviewed and I authenticate all verbal orders and agree with the evaluation and treatment provided.Attachments: 11:34 T-Sheet-- Draft Copy Chart Complete MTDD
--- NOTE | 2016-03-13 10:37 | EDDOCDS ---
Physician Documentation [facility] Name: Helen Wyatt Age: 30 yrs Sex: Female : 1985 Arrival Date: 03/10/2016 Time: 01:38 Bed 10 Private MD: Disposition: 03/10/16 06:22 Discharged to Home/Self Care. Impression: Abdominal and pelvic pain. - Condition is Stable. - Discharge Instructions: Abdominal Pain, Adult. - Prescriptions for Percocet 5- 325 mg Oral Tablet - take 1 tablet by ORAL route every 6 hours As needed MDD: 4 tabs; 20 tablet. Reglan 10 mg Oral Tablet - take 1 tablet by ORAL route every 6 hours take 30 minutes before meals and at bedtime; 20 tablet. Zofran 4 mg Oral Tablet - take 1 tablet by ORAL route 4 times per day As needed; 10 tablet. - Medication Reconciliation, Local Pharmacy Hours form. - Follow up: Syed Zuñiga MD; When: 1 week; Reason: To establish care. - Problem is an acute exacerbation. - Symptoms have improved. Historical: - Allergies: PENICILLINS (Hives); SULFA (SULFONAMIDES) (Hives); - Home Meds: 1. multivitamin Oral tab 1 tab daily 2. Zofran Oral - PMHx: Asthma; PCOS; Seasonal Allergies; - PSHx: ; Gastric Bypass; Tonsillectomy; - Social history: Smoking status: Patient states was never smoker of tobacco. No barriers to communication noted, The patient speaks fluent Turkmen, Speaks appropriately for age. - Family history: Not pertinent. - : The pt / caregiver states he / she is not on anticoagulants. Home medication list is obtained from the patient. 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 8 in. (172.72 cm); 05:15 Pain 5/10; mlc 06:33 BP 112 / 70; Pulse 70; Resp 18; Temp 98.2; Pulse Ox 97% ; Pain 3/10; mlc 01:48 Body Mass Index 27.98 (83.46 kg, 172.72 cm) cz MDM: 02:15 NS 0.9% 1000 ml IV at bolus once ordered. mm11 02:15 Ondansetron 4 mg IVP once ordered. mm11 02:15 morphine 4 mg IVP every 30 minutes; Document pain score/vitals after each dose (Hold if mm11 SBP < 90mmHg) x2 ordered. 02:15 IV Saline Lock ordered. mm11 02:15 Undress patient appropriately for examination ordered. mm11 02:16 Amylase Ordered. EDMS 02:16 Basic Metabolic Profile Ordered. EDMS 02:16 CBC with Diff Ordered. EDMS 02:16 HCG,Serum Qualitative Ordered. EDMS 02:16 Lipase Ordered. EDMS 02:16 Liver Profile Ordered. EDMS 02:16 CT ABD & PELVIS: IV and Oral Contrast Ordered. EDMS 02:16 Gallbladder US Ordered. EDMS 02:16 NOTHING BY MOUTH+DIET ordered. EDMS 02:21 Diatrizoate Meglumine & Sodium Liquid 10 ml PO once; mix in 290cc of water ordered. mlc 02:21 Diatrizoate Meglumine & Sodium Liquid 10 ml PO once; mix in 290cc of water ordered. mlc 02:23 Financial registration complete. [facility] 02:49 CBC with Diff Reviewed. mm11 02:49 HCG,Serum Qualitative Reviewed. mm11 02:59 Basic Metabolic Profile Reviewed. mm11 02:59 Liver Profile Reviewed. mm11 02:59 Amylase Reviewed. mm11 02:59 HCG,Serum Qualitative Reviewed. mm11 02:59 Lipase Reviewed. mm11 06:08 Gallbladder US Reviewed. mm11 06:21 oxyCODONE-acetaminophen 4 pack 5 mg-325 mg 1 packets PO once; Dispense with pt, take as mm11 per instruction on package ordered. 11:34 T-Sheet-- Draft Copy was scanned into [employer] and attached to record. gb 11:35 Radiology Report was scanned into [employer] and attached to record. gb Administered Medications: 02:37 Drug: morphine 4 mg [morphine 4 mg/mL intravenous cartridge (1 mL)] Route: IVP; Site: mlc right antecubital; 03:29 Follow up: Response: No significant change. mlc 02:37 Not Given (Other Intervention Used): Diatrizoate Meglumine & Sodium Liquid 10 ml PO mlc once; mix in 290cc of water 02:37 Drug: Diatrizoate Meglumine & Sodium 10 ml [diatrizoate meglumine and diat.sodium 66 mlc %-10 % oral solution (10 mL)] Route: PO; 02:38 Drug: NS 0.9% 1000 ml [sodium chloride 0.9 % intravenous solution] Route: IV; Rate: mlc bolus; Site: right antecubital; 02:38 Drug: Ondansetron 4 mg [ondansetron HCl 2 mg/mL intravenous solution (2 mL)] Route: mlc IVP; Site: right antecubital; 04:52 Drug: morphine 4 mg [morphine 4 mg/mL intravenous cartridge (1 mL)] Route: IVP; Site: mlc right antecubital; 05:15 Follow up: Pain 5/10 Adult; Response: Pain is decreased [facility] [place] 06:35 Drug: oxyCODONE-acetaminophen 4 pack 1 packets [oxycodone-acetaminophen 5 mg-325 mg mlc tablet (1 tabs)] {Co-Signature: cp1 (Gretel Carranza LPN).} Route: PO; Signatures: Dispatcher [employer] EDFeliciano Oseguera RN RN cz Moriah Rivera, Reg Reg gb Greg Urena, DO mm11 Shameka Bañuelos RN RN [facility] [place] Suellen Green [facility] Gretel Carranza LPN cp1 The chart was reviewed and I authenticate all verbal orders and agree with the evaluation and treatment provided.Attachments: 11:34 T-Sheet-- Draft Copy Chart Complete MTDD
--- NOTE | 2016-03-13 10:37 | EDDOCDS ---
Nurse's Notes [facility] Name: Helen Wyatt Age: 30 yrs Sex: Female : 1985 Arrival Date: 03/10/2016 Time: 01:38 Bed 10 Private MD: Diagnosis: Abdominal and pelvic pain Presentation: 03/10 01:45 Presenting complaint: Patient states: continues with abdominal pain seen by own cz provideer post appt. Risk factors: the patient reports no vaginal bleeding. Adult Sepsis Screening: The patient does not have new or worsening altered mentation. Patient's respiratory rate is less than 22. Systolic blood pressure is greater than 100. Patient has a qSOFA score of 0- Negative Sepsis Screen. Suicide/Homicide risk assessment- the patient denies having any suicidal and/or homicidal ideations and does not present with any other emotional, behavioral or mental health complaints. Status: Patient is not a rv service technician or dependent. Transition of care: patient was not received from another setting of care. 01:45 Acuity: SOMMER Level 3 cz 01:45 Method Of Arrival: Walkin/Carried/Asstd cz Triage Assessment: 01:48 General: Appears uncomfortable. Pain: Location: abdomen Pain currently is 8 out of 10 cz on a pain scale. HIV screening NA for this visit Offered previously. 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 multivitamin Oral tab 1 tab daily 2. Zofran Oral - PMHx: Asthma; PCOS; Seasonal Allergies; - PSHx: ; Gastric Bypass; Tonsillectomy; - Social history: Smoking status: Patient states was never smoker of tobacco. No barriers to communication noted, The patient speaks fluent Greek, Speaks appropriately for age. - Family history: Not pertinent. - : The pt / caregiver states he / she is not on anticoagulants. Home medication list is obtained from the patient. 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 Screenin:38 Screening information is obtained from the patient. Fall risk: No risks identified. mlc Assistance ADL's: requires no assistance with activities of daily living. Abuse/DV Screen: The patient / caregiver reports he/she is: not in a situation that causes fear, pain or injury. Nutritional screening: No deficits noted. home support is adequate. 02:45 Advance Directives: Currently, there is a health care proxy, Gretel Greene, mother. mlc There is an active Power of Inspector Welded Parts, Gretel Greene, mother. Assessment: 02:38 General: Appears in no apparent distress, uncomfortable, Behavior is cooperative. Pain: mlc Location: epigastric area and right upper quadrant Pain currently is 6 out of 10 on a pain scale. Neurological: Level of Consciousness is awake, alert, obeys commands, Oriented to person, place, time. Respiratory: Airway is patent Respiratory effort is even, unlabored, Respiratory pattern is regular. GI: Abdomen is non- distended Bowel sounds present X 4 quads. Abd is soft X 4 quads. Derm: Skin is normal. 03:25 Reassessment: Patient appears in no apparent distress at this time. pt resting mlc comfortably in bed, resp easy/unlabored. . 04:52 Reassessment: Patient appears in no apparent distress at this time. pt reports increase mlc in pain, pt medicated per order. resp easy/unlabored. . 05:15 Reassessment: Patient appears in no apparent distress at this time. Patient states mlc feeling better. pt reports pain is 5/10, states she is comfortable. resp easy/unlabored. . 06:33 General: Appears in no apparent distress, comfortable, Behavior is cooperative. Pain: mlc Pain currently is 3 out of 10 on a pain scale. Neurological: Level of Consciousness is awake, alert, Oriented to person, place, time. Respiratory: Airway is patent Respiratory effort is even, unlabored, Respiratory pattern is regular. Vital Signs: 01:48 BP 129 / 85; Pulse 65; Resp 16; Temp 96.6(T); Pulse Ox 99% on R/A; Weight 83.46 kg; cz Height 5 ft. 8 in. (172.72 cm); 05:15 Pain 5/10; mlc 06:33 BP 112 / 70; Pulse 70; Resp 18; Temp 98.2; Pulse Ox 97% ; Pain 3/10; mlc 01:48 Body Mass Index 27.98 (83.46 kg, 172.72 cm) Vitals: 01:48 Log In Time: March 10, 2016 at 01:40. ED Course: 01:40 Patient visited by Thi Arceo, Reg. hs2 01:40 Patient moved to Waiting hs2 01:47 Triage Initiated cz 01:54 Shameka Bañuelos RN is Primary Nurse. ml3 01:54 Patient moved to 10 ml3 02:02 Greg Urena DO is Attending Physician. mm11 02:02 Patient visited by Greg Urena DO. mm11 02:12 Patient visited by Greg Urena DO. mm11 02:20 Amylase Sent. mlc 02:20 Basic Metabolic Profile Sent. mlc 02:20 CBC with Diff Sent. mlc 02:20 HCG,Serum Qualitative Sent. mlc 02:20 Lipase Sent. mlc 02:20 Liver Profile Sent. mlc 02:38 The patient / caregiver is instructed regarding the plan of care and ED course. mlc 02:38 Inserted saline lock: 18 gauge in right antecubital area and blood collected. The [facility] [place] patient tolerated the procedure well. 02:39 Patient visited by Shameka Bañuelos RN. mlc 02:45 Patient visited by Shameka Bañuelos RN. mlc 04:13 Patient visited by Carroll Chen PCA. kb5 04:29 Gallbladder US Returned. EDMS 04:53 Patient visited by Shameka Bañuelos RN. mlc 04:56 Patient visited by Shameka Bañuelos RN. mlc 05:16 Patient visited by Shameka Bañuelos RN. mlc 06:21 Patient visited by Greg Urena DO. mm11 06:22 Syed Zuñiga MD is Referral Physician. mm11 06:33 Discontinued IV lock intact, bleeding controlled, pressure dressing applied, No mlc redness/swelling at site. No procedures done that require assistance. 06:35 Patient visited by Shameka Bañuelos RN. mlc 11:34 T-Sheet-- Draft Copy was scanned into [employer] and attached to record. gb 11:35 Radiology Report was scanned into [employer] and attached to record. gb Administered Medications: 02:37 Drug: morphine 4 mg [morphine 4 mg/mL intravenous cartridge (1 mL)] Route: IVP; Site: mlc right antecubital; 03:29 Follow up: Response: No significant change. mlc 02:37 Not Given (Other Intervention Used): Diatrizoate Meglumine & Sodium Liquid 10 ml PO mlc once; mix in 290cc of water 02:37 Drug: Diatrizoate Meglumine & Sodium 10 ml [diatrizoate meglumine and diat.sodium 66 mlc %-10 % oral solution (10 mL)] Route: PO; 02:38 Drug: NS 0.9% 1000 ml [sodium chloride 0.9 % intravenous solution] Route: IV; Rate: mlc bolus; Site: right antecubital; 02:38 Drug: Ondansetron 4 mg [ondansetron HCl 2 mg/mL intravenous solution (2 mL)] Route: mlc IVP; Site: right antecubital; 04:52 Drug: morphine 4 mg [morphine 4 mg/mL intravenous cartridge (1 mL)] Route: IVP; Site: mlc right antecubital; 05:15 Follow up: Pain 5/10 Adult; Response: Pain is decreased [facility] [place] 06:35 Drug: oxyCODONE-acetaminophen 4 pack 1 packets [oxycodone-acetaminophen 5 mg-325 mg mlc tablet (1 tabs)] {Co-Signature: cp1 (Gretel Carranza FISHING GEAR MECHANIC).} Route: PO; Order Results: Lab Order: Amylase; SPEC'M 03/10/16 02:19 Test: AMYLASE; Value: 75; Range: 25-115; Units: U/L; Status: F Lab Order: Basic Metabolic Profile; SPEC'M 03/10/16 02:19 Test: GLUCOSE, FASTING; Value: 84; Range: 70-105; Units: MG/DL; Status: F Test: BLOOD UREA NITROGEN; Value: 6; Range: 7-18; Abnormal: Below low normal; Units: MG/DL; Status: F Test: CREATININE FOR GFR; Value: 0.64; Range: 0.55-1.02; Units: MG/DL; Status: F Test: SODIUM LEVEL; Range: 136-145; Units: MEQ/L; Status: I Test: POTASSIUM SERUM; Range: 3.5-5.1; Units: MEQ/L; Status: I Test: CHLORIDE LEVEL; Range: 98-107; Units: MEQ/L; Status: I Test: CARBON DIOXIDE LEVEL; Range: 21-32; Units: MEQ/L; Status: I Test: ANION GAP; Range: 8-16; Units: MEQ/L; Status: I Test: CALCIUM LEVEL; Range: 8.5-10.1; Units: MG/DL; Status: I Test: GLOMERULAR FILTRATION RATE; Value: > 60.0; Range: >60; Status: F Test: SODIUM LEVEL; Value: 144; Range: 136-145; Units: MEQ/L; Status: F Test: POTASSIUM SERUM; Value: 3.5; Range: 3.5-5.1; Units: MEQ/L; Status: F Test: CHLORIDE LEVEL; Value: 105; Range: 98-107; Units: MEQ/L; Status: F Test: CARBON DIOXIDE LEVEL; Value: 30; Range: 21-32; Units: MEQ/L; Status: F Test: ANION GAP; Value: 9; Range: 8-16; Units: MEQ/L; Status: F Test: CALCIUM LEVEL; Value: 8.5; Range: 8.5-10.1; Units: MG/DL; Status: F Test Note: ; Units are mL/min/1.73 m2 Chronic Kidney Disease Staging per NKF: Stage I & II GFR >=60 Normal to Mildly Decreased Stage III GFR 30-59 Moderately Decreased Stage IV GFR 15-29 Severely Decreased Stage V GFR <15 Very Little GFR Left ESRD GFR <15 on DRAWING KILN SUPERVISOR Lab Order: CBC with Diff; SPEC'M 03/10/16 02:19 Test: WHITE BLOOD COUNT; Value: 4.0; Range: 4.0-10.0; Units: K/mm3; Status: F Test: RED BLOOD COUNT; Value: 4.43; Range: 4.00-5.40; Units: M/mm3; Status: F Test: HEMOGLOBIN; Value: 12.8; Range: 12.0-16.0; Units: g/dl; Status: F Test: HEMATOCRIT; Value: 39.2; Range: 36.0-47.0; Units: %; Status: F Test: MEAN CORPUSCULAR VOLUME; Value: 88.5; Range: 80.0-96.0; Units: fl; Status: F Test: MEAN CORPUSCULAR HEMOGLOBIN; Value: 29.0; Range: 27.0-33.0; Units: pg; Status: F Test: MEAN CORPUSCULAR HGB CONC; Value: 32.7; Range: 32.0-36.5; Units: g/dl; Status: F Test: RED CELL DISTRIBUTION WIDTH; Value: 12.5; Range: 11.5-14.5; Units: %; Status: F Test: PLATELET COUNT, AUTOMATED; Value: 132; Range: 150-450; Abnormal: Below low normal; Units: k/mm3; Status: F Test: NEUTROPHILS %; Value: 51.2; Range: 36.0-66.0; Units: %; Status: F Test: LYMPH %; Value: 35.7; Range: 24.0-44.0; Units: %; Status: F Test: MONO %; Value: 5.1; Range: 0.0-5.0; Abnormal: Above high normal; Units: %; Status: F Test: EOS %; Value: 5.1; Range: 0.0-3.0; Abnormal: Above high normal; Units: %; Status: F Test: BASO %; Value: 0.6; Range: 0.0-1.0; Units: %; Status: F Test: LARGE UNSTAINED CELL %; Value: 2.3; Range: 0.0-4.0; Units: %; Status: F Test: NEUTROPHILS #; Value: 2.1; Range: 1.8-7.7; Units: K/mm3; Status: F Test: LYMPH #; Value: 1.4; Range: 1.5-4.5; Abnormal: Below low normal; Units: K/mm3; Status: F Test: MONO #; Value: 0.2; Range: 0.0-0.8; Units: K/mm3; Status: F Test: EOS #; Value: 0.2; Range: 0.0-0.50; Units: K/mm3; Status: F Test: BASO #; Value: 0.0; Range: 0.0-0.2; Units: K/mm3; Status: F Test: LARGE UNSTAINED CELL #; Value: 0.1; Range: 0.0-0.4; Units: K/mm3; Status: F Lab Order: HCG,Serum Qualitative; SPEC'M 03/10/16 02:19 Test: HCG, SERUM QUALITATIVE; Value: NEGATIVE; Range: NEGATIVE; Status: F Lab Order: Lipase; SPEC'M 03/10/16 02:19 Test: LIPASE; Value: 123; Range: 73-393; Units: U/L; Status: F Lab Order: Liver Profile; SPEC'M 03/10/16 02:19 Test: AST/SGOT; Value: 12; Range: 15-37; Abnormal: Below low normal; Units: U/L; Status: F Test: ALT/SGPT; Value: 19; Range: 12-78; Units: U/L; Status: F Test: ALKALINE PHOSPHATASE; Value: 93; Range: 45-117; Units: U/L; Status: F Test: BILIRUBIN,TOTAL; Value: 0.4; Range: 0.2-1.0; Units: MG/DL; Status: F Test: BILIRUBIN,DIRECT; Value: 0.1; Range: 0.0-0.2; Units: MG/DL; Status: F Test: TOTAL PROTEIN; Value: 7.4; Range: 6.4-8.2; Units: GM/DL; Status: F Test: ALBUMIN; Value: 3.7; Range: 3.2-5.2; Units: GM/DL; Status: F Test: ALBUMIN/GLOBULIN RATIO; Value: 1.00; Range: 1.00-1.93; Status: F Radiology Order: Gallbladder US Test: Gallbladder US REASON FOR EXAMINATION: Biliary Colic; ; CLINICAL HISTORY: Abdominal pain.; TECHNIQUE: Realtime sonographic images were obtained in multiple projections.; COMMENTS:; The liver is of normal size, parenchyma demonstrates normal echogenicity. No discrete hepatic mass is; seen.; There is no intra or extrahepatic biliary ductal dilatation. CBD measures 3.3mm. The gallbladder is p; hysiologically distended without evidence of calculi. The gallbladder wall is not thickened and there; is no pericholecystic fluid. There is no abdominal ascites.; The right kidney measures 12.6x6.2x4.1 cm , free of hydronephrosis.; IMPRESSION:; Unremarkable study.; Thank you for your kind referral of this patient.; ; Outcome: 06:22 Discharge ordered by Provider. mm11 06:33 Discharge Assessment: Patient awake, alert and oriented x 3. No cognitive and/or mlc functional deficits noted. Patient verbalized understanding of disposition instructions. patient administered narcotics - no. Discharge Assessment: patient administered narcotics - yes. Pt provided with safe discharge. The following High Risk Discharge criteria are identified: None. Discharged to home ambulatory. Condition: good Condition: stable. Discharge instructions given to patient, Instructed on discharge instructions, follow up and referral plans. medication usage, no driving heavy equipment, Demonstrated understanding of instructions, medications, Pt was receptive of discharge instructions/ teaching. Prescriptions given X 3. CT Study completed. Ultrasound Study completed. Property sent home with patient. 06:35 Patient left the ED. [facility] [place] Signatures: Dispatcher [employer] EDNC Feliciano Kauffman RN RN cz Barnhardt, Gloria, Reg Reg gb Gaviota Tinsley, Swing Manager Unit ml3 Carroll Chen, MOLD FILLING OPERATOR MOLD FILLING OPERATOR kb5 Greg Urena, DO mm11 Shameka Bañuelos RN RN mlc Stanton, Hillary, Reg Reg hs2 Gretel Carranza LPN cp1 Chart Complete YSABEL
== END 2016-03-10 06:35 | disposition home or self-care (01) ==
LOC: M ED 01:38
DX: R10.9 Unspecified abdominal pain (principal); R11.10 Vomiting, unspecified; J45.909 Unspecified asthma, uncomplicated; Z98.84 Bariatric surgery status; Z88.0 Allergy status to penicillin; Z88.2 Allergy status to sulfonamides
CPT/HCPCS: 36415; 74177; 76705; 80048; 80076; 82150; 83690; 84703; 85025; 96374; 96375; 96376; 99284; J2405; Q9963; Q9967

== ENCOUNTER → 2016-03-22 | Outpatient (CLI) | payer OTHER ==
--- NOTE | 2016-03-22 10:54 | REP ---
Hepatobiliary scan and gallbladder ejection fraction: History: Right upper quadrant pain. Nausea and vomiting. Technique: 6.5 mCi of technetium-99m mebrofenin was injected and sequential anterior images are acquired. 65 minutes after the mebrofenin injection, the patient consumed 8 ounces Ensure and an additional 60 minutes of imaging was acquired. Regions of interest are plotted around the gallbladder. Findings: The initial hepatocellular parenchymal uptake phase is normal and homogeneous. Intra- and extra-hepatic bile ducts and duodenum are labeled by the 20 -minute image. The gallbladder is first labeled on the 10 -minute image. There is normal washout from the liver parenchyma into the gallbladder and small intestine on subsequent images. The gallbladder ejection fraction is normal at 68 %. Values greater than 35 % are considered normal with this technique. Impression: Normal hepatobiliary scan and gallbladder ejection fraction. Signed by Amilcar Quintanilla MD 03/22/2016 10:45 A
== END ==
LOC: M RAD 07:28
PROVIDERS: ATTEND Surgery
DX: R10.11 Right upper quadrant pain (principal)

== ENCOUNTER → 2016-04-18 | Day surgery (SDC) | payer OTHER ==
[~2016-04-18] VITALS: Ht 172.7 cm; Wt 88.0 kg
[~2016-04-18] MED LIST changes: +BUPIVACAINE/EPIN 0.25% 30 ML VIAL As Ordered ONE; +BUPIVACAINE/EPIN 0.25% 30 ML VIAL XX ONE; +CLINDAMYCIN 600 MG in APPROPRIATE DILUENT 1 EA IV ONE; +D5W/0.2% SODIUM CHLORIDE 250 ML IV SCH; +GLYCOPYRROLATE INJ 0.2 MG/ML 2 ML VIAL As Ordered ONE; +KETOROLAC 60 MG/2 ML VIAL (J1885) As Ordered ONE; +LIDOCAINE 2% INJ 100 MG/5 ML SDV (FOR ANES.) As Ordered ONE; +LR 1,000 ML IV SCH; +MIDAZOLAM INJ 2 MG/2 ML VIAL (J2250) As Ordered ONE; +MULT1TAB10 PO; +NEOSTIGMINE 1MG/ML 5 ML SYRINGE (J2710) As Ordered ONE; +NORCO, ANEXSIA 5/325MG TABLET (HYDROcodone/ACETAMINOPHEN) As Ordered ONE; +NORCO, ANEXSIA 5/325MG TABLET (HYDROcodone/ACETAMINOPHEN) PO PRN; +ONDANSETRON 4MG/2ML VIAL (J2405) As Ordered ONE; +ONDANSETRON 4MG/2ML VIAL (J2405) IV PRN; +PERCOCET 5MG/325MG TAB PO PRN; +PROPOFOL 200 MG/20 ML VIAL As Ordered ONE; +VALT500T PO; +ZOLO50TA PO; +dexameTHASONE 4 MG/ML 1ML VIAL (J1100) As Ordered ONE; +fentaNYL 250 MCG/5 ML INJECTION (J3010) As Ordered ONE
[2016-04-18 07:03] LABS: CONTROL LINE UCG INT CTR LINE PRESENT
[2016-04-18] MEDS: NORCO, ANEXSIA 5/325MG TABLET (HYDROcodone/ACETAMINOPHEN) PO PRN ×2 (08:40→09:29)
[2016-04-18] MEDS: fentaNYL 100 MCG/2 ML INJECTION (J3010) IV PRN ×2 (09:00→09:10)
[2016-04-18 10:40] VITALS: BP 128/80
--- NOTE | 2016-04-18 21:02 | RO ---
DATE OF PROCEDURE: 04/18/2016 PREOPERATIVE DIAGNOSIS: Chronic cholecystitis. POSTOPERATIVE DIAGNOSIS: Chronic cholecystitis. OPERATIVE PROCEDURE: Laparoscopic cholecystectomy. SURGEON: Deny Trejo DO ASSESSMENT: Dr. Arvizu ANESTHESIA: General with 10 mL 1% lidocaine with epi local. COMPLICATIONS: None. INDICATIONS FOR PROCEDURE: The patient is a 30-year-old female presents with persistent right upper quadrant abdominal pain radiating to her right side and up to her shoulder. Occurs mainly after meals. She has a dilated gallbladder on ultrasound, otherwise her ultrasound and HIDA are both normal. After having normal ultrasound and normal HIDA I gave her the option of laparoscopic cholecystectomy. The risks and benefits of the procedure, not limited to but including bleeding, infection, hernia formation, damage to surrounding structures, need for further surgery and the possibility of this not curing her symptoms were discussed in detail with the patient. Informed consent was obtained and the procedure was planned. DESCRIPTION OF PROCEDURE: The patient brought back to operating room three and after sufficient sedation the abdomen was sterilely prepped and draped. Next, a time-out was done to confirm proper patient and proper procedure. Following that a stab incision made in the left lower quadrant at Gipson's point. Veress needle was inserted and the abdomen was insufflated with 50 mmHg. Next, a 5 mm infraumbilical incision was made. Incision was carried down to level of fascia. 5 mm Optiview port was then used to gain access to the abdomen. Once the abdomen was entered, the Veress needle site was examined. There were no signs of injury. The Veress needle was then removed. A 10 mm port was placed subxiphoid, two 5 mm ports in the right upper quadrant. Fundus of the gallbladder was grasped and elevated up towards the right shoulder. Cystic duct and cystic artery were both clearly dissected free using blunt dissection. They were both then doubly clipped and cut. The gallbladder was then removed from gallbladder fossa using electrocautery. The gallbladder was then removed from the abdomen in a 10 mm EndoCatch bag. The Dhaval-Hunter needle with an #0 Vicryl suture were used to close the fascia at the subxiphoid port site. Once this was finished, the right upper quadrant was examined to confirm that there were no signs of any injury. The abdomen was then desufflated. Skin incision was closed with #4-0 Vicryl subcuticular sutures. Abdomen was then cleaned and dried. Steri-Strips, 4 x 4, and tape were applied thus ending the procedure.
== END | disposition home or self-care (01) ==
LOC: M SDC 05:49
PROVIDERS: ATTEND Surgery
DX: K81.1 Chronic cholecystitis (principal); I10 Essential (primary) hypertension; K21.9 Gastro-esophageal reflux disease without esophagitis; Z98.84 Bariatric surgery status; F32.9 Major depressive disorder, single episode, unspecified; F41.9 Anxiety disorder, unspecified; Z87.891 Personal history of nicotine dependence; Z88.2 Allergy status to sulfonamides; Z88.0 Allergy status to penicillin; Z79.899 Other long term (current) drug therapy; F43.10 Post-traumatic stress disorder, unspecified
CPT/HCPCS: 47562; 84703; 88304; J1100; J1885; J2250; J2405; J2710; J3010

== ENCOUNTER 2016-06-05 10:01 | Emergency (ER) | payer OTHER ==
[~2016-06-05] VITALS: Ht 172.7 cm; Wt 88.5 kg
[~2016-06-05 10:01] MED LIST changes: -BUPIVACAINE/EPIN 0.25% 30 ML VIAL As Ordered ONE; -BUPIVACAINE/EPIN 0.25% 30 ML VIAL XX ONE; -CLINDAMYCIN 600 MG in APPROPRIATE DILUENT 1 EA IV ONE; -D5W/0.2% SODIUM CHLORIDE 250 ML IV SCH; -GLYCOPYRROLATE INJ 0.2 MG/ML 2 ML VIAL As Ordered ONE; -KETOROLAC 60 MG/2 ML VIAL (J1885) As Ordered ONE; -LIDOCAINE 2% INJ 100 MG/5 ML SDV (FOR ANES.) As Ordered ONE; -LR 1,000 ML IV SCH; -MIDAZOLAM INJ 2 MG/2 ML VIAL (J2250) As Ordered ONE; -NEOSTIGMINE 1MG/ML 5 ML SYRINGE (J2710) As Ordered ONE; -NORCO, ANEXSIA 5/325MG TABLET (HYDROcodone/ACETAMINOPHEN) As Ordered ONE; -NORCO, ANEXSIA 5/325MG TABLET (HYDROcodone/ACETAMINOPHEN) PO PRN; -ONDANSETRON 4MG/2ML VIAL (J2405) As Ordered ONE; -ONDANSETRON 4MG/2ML VIAL (J2405) IV PRN; -PERCOCET 5MG/325MG TAB PO PRN; -PROPOFOL 200 MG/20 ML VIAL As Ordered ONE; -dexameTHASONE 4 MG/ML 1ML VIAL (J1100) As Ordered ONE; -fentaNYL 250 MCG/5 ML INJECTION (J3010) As Ordered ONE
[2016-06-05] MEDS ORDERED: PRENTAB9 PO (10:09)
[2016-06-05] MEDS ORDERED: AZO95TAB PO (10:09)
[2016-06-05] MEDS ORDERED: VITA50TA43 PO (10:09)
[2016-06-05 12:00] LABS: BASO % 0.4 % (0.0-1.0); EOS # 0.1 K/mm3 (0.0-0.50); EOS % 1.9 % (0.0-3.0); LARGE UNSTAINED CELL # 0.1 K/mm3 (0.0-0.4); LARGE UNSTAINED CELL % 1.2 % (0.0-4.0); LYMPH # 1.4 K/mm3 (1.5-4.5); MEAN CORPUSCULAR HEMOGLOBIN 29.6 pg (27.0-33.0); MEAN CORPUSCULAR HGB CONC 32.3 g/dl (32.0-36.5); MEAN CORPUSCULAR VOLUME 91.9 fl (80.0-96.0); MONO # 0.3 K/mm3 (0.0-0.8); MONO % 4.8 % (0.0-5.0); NEUTROPHILS # 4.1 K/mm3 (1.8-7.7); NEUTROPHILS % 68.7 % (36.0-66.0); PLATELET COUNT, AUTOMATED 180 k/mm3 (150-450); RED CELL DISTRIBUTION WIDTH 14.2 % (11.5-14.5); WHITE BLOOD COUNT 5.9 K/mm3 (4.0-10.0)
--- NOTE | 2016-06-05 13:24 | REP ---
FIRST TRIMESTER ULTRASOUND: Real-time sonographic evaluation of gravid uterus performed utilized transabdominal and endovaginal technique. The uterus measures 9.7 x 6.4 x 2.0 cm. There is a gestational sac with a mean sac diameter of 8 mm, within the endometrial canal. This would correspond to an estimated gestational age of 5 weeks 4 days. There is a yolk sac identified within this gestational sac. No pole is seen. Right ovary measures 5.3 x 2.7 x 4.2 cm and left ovary 4.2 x 2.3 x 4.4 cm. Blood flow is seen in each ovary with duplex Doppler evaluation, with no torsion, RI of the right ovary is 0.39 and left ovary 0.51. Complex cystic structure of the right ovary measures 2.8 x 2.0 x 1.5 cm probably representing a complex corpus luteum. Tiny amount of free fluid is seen in the pelvis. IMPRESSION: Early intrauterine gestation 5 weeks 4 days, with a gestational sac seen containing a yolk sac. Probable complex corpus luteum right ovary. No ovarian torsion. Tiny amount of free fluid in the pelvis. Followup may be obtained in 10 to 14 days to document liability. Signed by Deny Flores MD 06/05/2016 04:39 P
[2016-06-05 14:27] LABS: MICROSCOPIC INDICATED? MAN YES (NO)
[2016-06-05 14:30] LABS: BACTERIA, URINE NONE SEEN; HYALINE CAST, URINE NONE SEEN /lpf (0-1); MICROSCOPIC EXAM PERFORMED; RBC, URINE NONE SEEN /hpf (0-3); SQUAMOUS EPITHELIAL CELL URINE SMALL AMOUNT /hpf (SMALL AMT)
[2016-06-05] MEDS ORDERED: METR0.7512 PV (15:11)
[2016-06-05] MEDS ORDERED: RHOGAM 300 MCG (1500 IU) INJ (J2790) IM SCH (15:30)
[2016-06-05 15:37] VITALS: BP 149/68
== END 2016-06-05 15:41 | disposition home or self-care (01) ==
LOC: M ED 11:05
DX: O20.9 Hemorrhage in early pregnancy, unspecified (principal); O23.591 Infection of other part of genital tract in pregnancy, first trimester; Z3A.12 12 weeks gestation of pregnancy
CPT/HCPCS: 36415; 76801; 76817; 81000; 84702; 85025; 86850; 86901; 87086; 87210; 87491; 87591; 90471; 93976; 99283; J2790

== ENCOUNTER → 2016-06-06 | Outpatient (CLI) | payer OTHER ==
[~2016-06-06] MED LIST changes: +AZO95TAB PO; +METR0.7512 PV; +PRENTAB9 PO; +VITA50TA43 PO
[2016-06-06 18:43] LABS: BASO % 0.4 % (0.0-1.0); EOS # 0.1 K/mm3 (0.0-0.50); EOS % 2.8 % (0.0-3.0); LARGE UNSTAINED CELL # 0.1 K/mm3 (0.0-0.4); LARGE UNSTAINED CELL % 1.4 % (0.0-4.0); LYMPH # 1.5 K/mm3 (1.5-4.5); LYMPH % 32.1 % (24.0-44.0); MEAN CORPUSCULAR HEMOGLOBIN 28.7 pg (27.0-33.0); MEAN CORPUSCULAR HGB CONC 30.8 g/dl (32.0-36.5); MEAN CORPUSCULAR VOLUME 93.2 fl (80.0-96.0); MONO # 0.3 K/mm3 (0.0-0.8); NEUTROPHILS # 2.5 K/mm3 (1.8-7.7); NEUTROPHILS % 57.2 % (36.0-66.0); PLATELET COUNT, AUTOMATED 182 k/mm3 (150-450); RED CELL DISTRIBUTION WIDTH 14.1 % (11.5-14.5); WHITE BLOOD COUNT 4.4 K/mm3 (4.0-10.0)
[2016-06-08 10:35] LABS: HBsAg Prenatal NEGATIVE (NEGATIVE)
== END ==
LOC: M SMT 14:37
PROVIDERS: ATTEND Obstetrics & Gynecology
DX: Z34.81 Encounter for supervision of other normal pregnancy, first trimester (principal)

== ENCOUNTER → 2016-06-18 | Outpatient (REF) | payer OTHER | LOC: M LAB REF 12:30 | PROVIDERS: ATTEND Advanced Practice Midwife | DX: Z34.81 Encounter for supervision of other normal pregnancy, first trimester (principal) ==

== ENCOUNTER → 2016-09-07 | Outpatient (CLI) | payer OTHER ==
[~2016-09-07] MED LIST changes: +IBUP1TAB7 PO; -IBUP800T23 PO; -METR0.7512 PV; +METR1GEL7 PV
--- NOTE | 2016-09-07 10:13 | REP ---
Clinical: Anatomical evaluation. Comparison: 06/05/2016 . Findings: Examination demonstrates a single live intrauterine in breech presentation. motion is identified by technologist. Placenta is noted posterior and grade zero without evidence for placenta previa or abruption. Amniotic fluid volume is normal. Cervix measures 5.3 cm in length and appears closed. No evidence for nuchal cord. Gestational age by LMP 18 weeks 4 days with ROGELIO 02/04/2017 . Gestational age by current measurements 19 weeks 0 days with ROGELIO is 02/01/2017 . FHR equals 147 beats per minute. BPD 4.2 cm 18 weeks 6 days HC 16.3 cm 19 weeks 0 days AC 14.1 cm 19 weeks 3 days FL 2.9 cm 19 weeks 0 days HL 2.8 cm 18 weeks 6 days HC/AC ratio 1.16 Estimated weight 282 grams ( 71st percentile). Anatomical assessment demonstrates normal structures including cranium, choroid plexus, cavum, cerebellum/posterior fossa, facial features, lungs, four-chamber heart/ventricular outflow tracts, diaphragm, stomach, cord insertion/three-vessel cord, kidneys/bladder, spine, and extremities. Impression: Single live intrauterine in breech presentation demonstrating appropriate interval growth. Anatomical assessment is complete and normal. No gross abnormalities are identified. Signed by Kapil Bridges MD 09/07/2016 10:05 A
== END ==
LOC: M RAD 08:41
PROVIDERS: ATTEND Specialist
DX: Z36 Encounter for antenatal screening of mother (principal); Z3A.19 19 weeks gestation of pregnancy

== ENCOUNTER → 2016-11-07 | Outpatient (CLI) | payer OTHER ==
[2016-11-07 20:09] LABS: MEAN CORPUSCULAR VOLUME 93.9 fl (80.0-96.0); RED CELL DISTRIBUTION WIDTH 12.8 % (11.5-14.5); WHITE BLOOD COUNT 6.4 K/mm3 (4.0-10.0)
[2016-11-07 20:15] LABS: FOLATE > 24.0 NG/ML; VITAMIN B12 LEVEL 274 PG/ML
== END ==
LOC: M SMT 11:20
PROVIDERS: ATTEND Obstetrics & Gynecology
DX: Z34.82 Encounter for supervision of other normal pregnancy, second trimester (principal); O99.843 Bariatric surgery status complicating pregnancy, third trimester

== ENCOUNTER → 2016-11-23 | Outpatient (CLI) | payer OTHER ==
--- NOTE | 2016-11-23 10:58 | REP ---
Obstetric ultrasonography for growth: A single intrauterine gestation in a vertex presentation. There is movement and cardiac activity. heart rate is 149 beats per minute. The placenta is posterior. There is no placenta previa or abruptio. Placenta is grade II. The amniotic fluid volume subjectively is normal. The amniotic fluid index is 9.4 (9.1 - 23.3). The cervix measures 6.2 cm in length. Maternal adnexa and cul-de-sac are unremarkable. By the ultrasound today gestational age is 31 weeks 1 day with an ROGELIO of 01/24/2017. By the first ultrasound gestational age 30 weeks 0 days with an ROGELIO of 02/01 2017. By LMP gestational age is 29 weeks 4 days. weight is 1511 grams (3 pounds, 5 ounces). This is the 53rd percentile for 29 weeks 4 days. The following anatomic structures are identified and are unremarkable: Intracranial lateral ventricle, lungs, choroid plexus, cerebellum, cranium, cavum septum pellucidum, balloon upper lip, lungs, four-chamber heart, cardiac right and left ventricular outflow tracts, diaphragm, stomach, cord insertion, three-vessel cord, kidneys, bladder, spine and upper lower extremities. No anomalies are identified. Signed by Deny Collins MD 11/23/2016 10:50 A
== END ==
LOC: M RAD 09:35
PROVIDERS: ATTEND Obstetrics & Gynecology
DX: O99.843 Bariatric surgery status complicating pregnancy, third trimester (principal); Z3A.31 31 weeks gestation of pregnancy

== ENCOUNTER 2017-01-20 01:22 | Inpatient (IN) | payer OTHER ==
[2017-01-20] VITALS (7 sets, daily range): BP systolic 109–142; BP diastolic 63–89
[~2017-01-20] VITALS: Ht 172.7 cm; Wt 96.5 kg
[2017-01-20] MEDS ORDERED: LR 1,000 ML IV SCH ×2 (02:25→06:30)
[2017-01-20] MEDS ORDERED: AZTREONAM IV ONE (02:30)
[2017-01-20] MEDS ORDERED: CLINDAMYCIN 900 MG in APPROPRIATE DILUENT 1 EA IV ONE (02:30)
[2017-01-20] MEDS ORDERED: DILUENT IV ONE (02:30)
[2017-01-20] MEDS ORDERED: BICITRA 30ML SOLN UDC PO ONE (02:30)
[2017-01-20 02:36] LABS: MEAN CORPUSCULAR HEMOGLOBIN 25.4 pg (27.0-33.0); MEAN CORPUSCULAR HGB CONC 31.5 g/dl (32.0-36.5); MEAN CORPUSCULAR VOLUME 80.6 fl (80.0-96.0); PLATELET COUNT, AUTOMATED 197 10^3/uL (150-450); RED CELL DISTRIBUTION WIDTH 13.2 % (11.5-14.5); WHITE BLOOD COUNT 8.7 10^3/uL (4.0-10.0)
[2017-01-20] MEDS ORDERED: MORPHINE PRES-FREE INJ 10 MG/10 ML VIAL (J2274) As Ordered ONE (03:55)
[2017-01-20] MEDS ORDERED: OXYTOCIN INJ 10 UNITS/ML VIAL (J2590) As Ordered ONE (03:57)
[2017-01-20] MEDS ORDERED: ONDANSETRON 4MG/2ML VIAL (J2405) As Ordered ONE (04:01)
[2017-01-20] MEDS ORDERED: KETOROLAC 60 MG/2 ML VIAL (J1885) As Ordered ONE (04:01)
[2017-01-20] MEDS ORDERED: NALOXONE INJ 0.4 MG/1 ML VIAL (J2310) IV PRN ×2 (04:45)
[2017-01-20] MEDS ORDERED: ONDANSETRON 4MG/2ML VIAL (J2405) IV PRN ×3 (04:45→06:30)
[2017-01-20] MEDS ORDERED: METOCLOPRAMIDE INJ 10MG/2ML VIAL (J2765) IV PRN ×2 (04:45→06:30)
[2017-01-20] MEDS ORDERED: NALBUPHINE HCL 10 MG/ML AMP (J2300) IV PRN (04:45)
[2017-01-20] MEDS ORDERED: ePHEDrine SULFATE 25 MG/5 ML(5MG/ML) SYRINGE As Ordered ONE (04:52)
[2017-01-20] MEDS: LR 1,000 ML IV SCH ×2 (06:17→14:17)
[2017-01-20] MEDS ORDERED: IBUP1TAB7 PO (06:20)
[2017-01-20] MEDS ORDERED: PERCOCET PO (06:21)
[2017-01-20] MEDS ORDERED: PERCOCET 5MG/325MG TAB PO PRN (06:30)
[2017-01-20] MEDS ORDERED: NORCO, ANEXSIA 5/325MG TABLET (HYDROcodone/ACETAMINOPHEN) PO PRN (06:30)
[2017-01-20] MEDS ORDERED: OXYTOCIN DRIP 30 UNITS in APPROPRIATE DILUENT 1 EA IV ONE (06:30)
[2017-01-20] MEDS ORDERED: RHOGAM 300 MCG (1500 IU) INJ (J2790) IM SCH (06:30)
[2017-01-20] MEDS ORDERED: DOCUSATE SODIUM 100 MG CAP PO PRN (06:30)
[2017-01-20] MEDS ORDERED: MEASLES,MUMPS,RUBELLA VACCINE INJ (MMR-II) (90707) SC SCH (06:30)
[2017-01-20] MEDS ORDERED: fentaNYL 100 MCG/2 ML INJECTION (J3010) IV PRN (06:30)
[2017-01-20] MEDS ORDERED: MOM 30ML SUSPENSION UDC PO PRN (06:30)
[2017-01-20] MEDS: PRENATAL VITAMINS CHEWABLE TABLET PO SCH (09:25)
[2017-01-20] MEDS: KETOROLAC 30 MG/ML VIAL (J1885) IV SCH ×3 (11:29→23:25)
--- NOTE | 2017-01-20 11:45 | HPE ---
DATE OF ADMISSION: 01/20/2017 REASON FOR ADMISSION: Spontaneous rupture of membranes. HISTORY OF PRESENT ILLNESS: Ms. Gomez is a 31-year-old, 2, para 1, who presents at 37 weeks estimated gestational age with complaint of leakage of clear fluid. She reports a large gush of clear fluid that occurred approximately at midnight, followed by increase in regular pattern of contractions. She denied any vaginal bleeding. She reports active movements. course has been uncomplicated. She initiated care in the first trimester and has been appropriate throughout. PAST MEDICAL HISTORY: She has a history of depression and anxiety and asthma. PAST SURGICAL HISTORY: 1. She has had a primary section. 2. Cholecystectomy. 3. Gastric bypass. 4. Tonsillectomy. 5. Adenoidectomy. MEDICATIONS: Include: - vitamins - iron - Claritin - Valtrex ALLERGIES: She has allergies to PENICILLIN and SULFA. SOCIAL HISTORY: She denies any alcohol, tobacco or drug use during the . OBSTETRICAL HISTORY: She is 2, para 1. 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 PHYSICAL EXAMINATION: VITAL SIGNS: Stable. She is afebrile. She has a category 1 heart rate tracing and regular patterned contractions. LUNGS: Her lungs are clear to auscultation bilaterally. CARDIOVASCULAR: Heart has regular rate and rhythm. ABDOMEN: Her abdomen was gravid, nontender. PELVIC EXAM: She is grossly ruptured, clear fluid. LABORATORY DATA: Blood type is O negative, Rubella is immune. RPR is nonreactive. Hepatitis surface antigen is negative. HIV is negative. Hepatitis C nonreactive. Chlamydia and gonorrhea screens are negative. She is also Group B streptococcus (GBS) negative. ASSESSMENT: 1. Ms. Gomez is a 31-year-old, 2 para 1 at 37 weeks, 6 days estimated gestational age with spontaneous rupture of membranes. 2. Reassuring status. 3. History of primary section. PLAN: Admit to labor and delivery. CBC, RPR, type and screen. Urine toxicology screen. The patient has been thoroughly counseled in regard to mode of delivery. This consultation began during and has continued up until the day of presentation. I discussed her options for trial of labor after section (TOLAC) versus elective repeat section. The patient has expressed her desire throughout this time for elective repeat section. Plan is to proceed with a section.
--- NOTE | 2017-01-20 12:02 | RO ---
DATE OF OPERATION: 01/20/2017 PREOPERATIVE DIAGNOSES: 1. Spontaneous rupture of membranes at 37 weeks 6 days estimated gestational age. 2. History of primary section with desires for an elective repeat lower transverse section. POSTOPERATIVE DIAGNOSES: 1. Spontaneous rupture of membranes at 37 weeks 6 days estimated gestational age. 2. History of primary section with desires for an elective repeat lower transverse section. PROCEDURE PERFORMED: Elective repeat lower transverse section. SURGEON: Suzi Jessica MD ASSISTANTS: Angelo Arboleda MD ANESTHESIA: Spinal. ESTIMATED BLOOD LOSS: Was 600 mL. INTRAVENOUS FLUIDS: 1200 mL of lactated Ringer solution. URINE OUTPUT: Was 150 mL. PREOPERATIVE ANTIBIOTICS: Clindamycin and aztreonam. SPECIMEN: Cord blood. OPERATIVE FINDINGS: Liveborn male infant. score 9 and 9. Weight 3380 grams or 7 pounds 2 ounces. DESCRIPTION OF OPERATION: After informed consent was obtained and written consent was reviewed, the patient was brought to the operating room where spinal anesthesia was obtained. She was then placed in lithotomy position, was prepped and draped in a normal sterile fashion. A Hammond catheter was placed and set to gravity. A time-out in the operating room was then performed, identifying the patient, procedure to be performed, as well as drug allergies. Anesthesia was then tested and deemed to be adequate. A Pfannenstiel skin incision was made along the previous skin incision and carried down to the underlying rectus fascia. The fascia was scored and this incision was extended bilaterally. The fascia was then dissected off the underlying rectus muscles both superiorly and inferiorly. The rectus muscles were in the midline. The peritoneum was then entered sharply. The vesicouterine peritoneum was then identified. It was tented and excised to create a bladder flap. A bladder blade was then placed to retract back the bladder. A curvilinear incision was then made in the lower uterine segment. The uterine cavity was the entered. The head was brought to level of the incision atraumatically, followed by delivery of the shoulders and corpus. The cord was clamped times two, it was cut and was taken over to warmer with a good cry. Cord blood was then obtained. Placenta was then drained and delivered grossly intact. The uterus was exteriorized and cleared of all clots and debris. The uterine incision was then closed in two layers using #0 Vicryl, first layer in a running locking fashion, followed by a second layer in a running nonlocking fashion for imbrication. The abdomen was suctioned. The uterus was returned to the patient's abdomen and it was re-inspected and noted to be hemostatic. The anterior peritoneum was then reapproximated with #3-0 Vicryl. The rectus muscles were reapproximated using #3-0 Vicryl. The fascia was closed with #0 Vicryl in a running nonlocking fashion. The subcutaneous tissue was then irrigated and suctioned. Subcutaneous tissues was then reapproximated with #3-0 Vicryl. Several subdermal stitches were placed with #3-0 Vicryl and the skin was closed with #4-0 Monocryl in a subcuticular fashion. The incision was then cleaned and dry. Mastisol was applied above and below the incision. Steri-Strips were applied over the incision and the incision was dressed. The patient was then taken to recovery in stable condition. Counts were correct.
[2017-01-20] MEDS: PERCOCET 5MG/325MG TAB PO PRN (23:26)
[2017-01-21 02:06] VITALS: BP 112/66
[2017-01-21] MEDS: KETOROLAC 30 MG/ML VIAL (J1885) IV SCH (05:29)
[2017-01-21 06:00] VITALS: BP 111/60
[2017-01-21 07:05] LABS: MEAN CORPUSCULAR HEMOGLOBIN 25.3 pg (27.0-33.0); MEAN CORPUSCULAR HGB CONC 30.8 g/dl (32.0-36.5); MEAN CORPUSCULAR VOLUME 82.3 fl (80.0-96.0); PLATELET COUNT, AUTOMATED 144 10^3/uL (150-450); RED CELL DISTRIBUTION WIDTH 13.2 % (11.5-14.5); WHITE BLOOD COUNT 11.4 10^3/uL (4.0-10.0)
[2017-01-21] MEDS: PRENATAL VITAMINS CHEWABLE TABLET PO SCH (09:19)
[2017-01-21 10:11] VITALS: BP 115/63
[2017-01-21] MEDS: PERCOCET 5MG/325MG TAB PO PRN ×4 (11:08→22:04)
[2017-01-21] MEDS: IBUPROFEN 800 MG TAB PO SCH ×2 (13:29→21:30)
[2017-01-21 15:39] VITALS: BP 116/67
[2017-01-21 17:57] VITALS: BP 114/56
[2017-01-21 22:00] VITALS: BP 145/96
[2017-01-22] MEDS: PERCOCET 5MG/325MG TAB PO PRN ×3 (03:26→11:54)
[2017-01-22] MEDS: IBUPROFEN 800 MG TAB PO SCH ×2 (05:30→13:32)
[2017-01-22 06:00] VITALS: BP 115/67
[2017-01-22] MEDS ORDERED: COLA100C5 PO (07:32)
[2017-01-22] MEDS: PRENATAL VITAMINS CHEWABLE TABLET PO SCH (07:58)
== END 2017-01-22 15:25 | disposition home or self-care (01) | DRG 540 ==
LOC: M LDO 01:22 → M LDI 02:18 → M OBS 08:40
PROVIDERS: ADMIT Obstetrics & Gynecology; ATTEND Obstetrics & Gynecology
PROC: 10D00Z1 Extraction of Products of Conception, Low, Open Approach (ICD-10-PCS; principal; 2017-01-20 04:42)
DX: O34.211 Maternal care for low transverse scar from previous cesarean delivery (principal); O75.82 Onset (spontaneous) of labor after 37 completed weeks of gestation but before 39 completed weeks gestation, with delivery by (planned) cesarean section; Z37.0 Single live birth; Z3A.37 37 weeks gestation of pregnancy; Z90.49 Acquired absence of other specified parts of digestive tract; Z98.84 Bariatric surgery status; Z79.899 Other long term (current) drug therapy; Z88.2 Allergy status to sulfonamides; Z88.0 Allergy status to penicillin

== ENCOUNTER 2021-05-11 07:35 | Inpatient (IN) | payer BC ==
[~2021-05-11] VITALS: Ht 172.7 cm; Wt 66.2 kg
[~2021-05-11 07:35] MED LIST changes: +BUSP5TA PO; +COLA100C5 PO; +FERR1TAB8 PO; +PAXI40TA10 PO; +PERCOCET PO; +VENL37TA; +ZOFR4TAB16 PO; +ZOLO25TA PO
[2021-05-11] MEDS ORDERED: ACET-683 PO (07:48)
[2021-05-11 08:26] LABS: BASO % 0.2 % (0.0-1.0); EOS % 0.1 % (0.0-3.0); HEMATOCRIT 25.9 % (36.0-47.0); HEMOGLOBIN 7.8 g/dl (12.0-15.5); LYMPH # 0.7 10^3/uL (1.5-5.0); LYMPH % 4.2 % (24.0-44.0); MEAN CORPUSCULAR HGB CONC 30.1 g/dl (32.0-36.5); MEAN CORPUSCULAR VOLUME 86.3 fl (80.0-96.0); MONO # 0.6 10^3/uL (0.0-0.8); MONO % 3.5 % (2.0-8.0); NEUTROPHILS # 14.1 10^3/uL (1.5-8.5); NEUTROPHILS % 91.2 % (36.0-66.0); WHITE BLOOD COUNT 15.5 10^3/uL (4.0-10.0)
[2021-05-11 08:35] LABS: HCG, SERUM QUALITATIVE NEGATIVE (NEGATIVE)
[2021-05-11] MEDS ORDERED: NS 1,000 ML IV ONE (08:50)
[2021-05-11] MEDS ORDERED: ONDANSETRON 4MG/2ML VIAL IV ONE (08:50)
[2021-05-11 08:52] LABS: ALBUMIN 2.1 GM/DL (3.2-5.2); ALT/SGPT 25 U/L (12-78); BILIRUBIN,DIRECT < 0.1 MG/DL (0.0-0.2); BILIRUBIN,TOTAL 0.5 MG/DL (0.2-1.0); LIPASE 61 U/L (73-393); TOTAL PROTEIN 7.4 GM/DL (6.4-8.2)
[2021-05-11 09:11] LABS: APPEARANCE, URINE HAZY (CLEAR); BACTERIA, URINE AUTO 1+ (NEGATIVE); BILIRUBIN, URINE AUTO NEGATIVE (NEGATIVE); BLOOD, URINE BLOOD NEGATIVE (NEGATIVE); COLOR, URINE YELLOW (YELLOW); GLUCOSE, URINE (UA) AUTO NEGATIVE (NEGATIVE); KETONE, URINE AUTO NEGATIVE (NEGATIVE); LEUKOCYTE ESTERASE, URINE AUTO NEGATIVE (NEGATIVE); NITRITE, URINE AUTO NEGATIVE (NEGATIVE); PROTEIN, URINE AUTO NEGATIVE (NEGATIVE); RBC, URINE AUTO 1 /HPF (0-3); SPECIFIC GRAVITY URINE AUTO 1.008 (1.002-1.035); SQUAMOUS EPITHELIAL CELL UR AU 3 /HPF (0-6); WBC, URINE AUTO 3 /HPF (0-3)
[2021-05-11 10:42] LABS: PLTBLUE- EDTA FREE CALC 268 K/mm3 (172-450); PLTBLUE- EDTA FREE MACHINE 244 10^3/uL (172-450)
[2021-05-11 10:55] LABS: INR 1.41; PROTHROMBIN TIME 17.7 SECONDS (12.7-14.5)
[2021-05-11 10:56] LABS: PARTIAL THROMBOPLASTIN TIME 43.1 SECONDS (25.9-37.0)
[2021-05-11] MEDS: GASTROGRAFIN SOLUTION 30ML PO SCH ×2 (11:05→11:15)
[2021-05-11] MEDS ORDERED: ISOVUE-370 76% 100ML VIAL As Ordered ONE (11:08)
[2021-05-11] MEDS ORDERED: metroNIDAZOLE 500 MG in IV 1 EA IV ONE (14:10)
[2021-05-11 14:25] LABS: RSV AMPLIFICATION NEGATIVE (NEGATIVE)
[2021-05-11] MEDS ORDERED: LevoFLOXacin IV 750 MG in IV 1 EA IV ONE (14:45)
[2021-05-11] MEDS ORDERED: MOM 30ML SUSPENSION UDC PO PRN (14:50)
[2021-05-11] MEDS ORDERED: ACETAMINOPHEN TAB 650MG DOSE (2X325MG) PO PRN (14:50)
[2021-05-11] MEDS ORDERED: GENTAMICIN 120 MG in D5W 50 ML IV ONE (15:00)
[2021-05-11] MEDS ORDERED: HOME MED LIST COMPLETE! XX SCH (15:10)
[2021-05-11] MEDS ORDERED: LIDOCAINE 1% MDV 20ML VIAL As Ordered ONE (15:59)
[2021-05-11] MEDS: VANCOMYCIN HCL 1,000 MG, VIAL MATE ADAPTER 1 EACH in NS 250 ML IV SCH (17:00)
[2021-05-11] MEDS ORDERED: VANCOMYCIN HCL 500 MG in D5W MINI-BAG PLUS 100 ML IV ONE (18:00)
[2021-05-11 20:05] VITALS: BP 112/63
[2021-05-11] MEDS ORDERED: PILL CUTTER 1 EACH XX PRN (22:10)
[2021-05-11] MEDS: VENLAFAXINE 37.5 MG TAB PO SCH (22:55)
[2021-05-11 23:34] VITALS: BP 113/59
[2021-05-11] MEDS: metroNIDAZOLE 500 MG in IV 1 EA IV SCH (23:59)
[2021-05-12] MEDS: VANCOMYCIN HCL 1,000 MG, VIAL MATE ADAPTER 1 EACH in NS 250 ML IV SCH (01:00)
[2021-05-12 04:00] VITALS: BP 118/64
[2021-05-12] MEDS: metroNIDAZOLE 500 MG in IV 1 EA IV SCH (07:04)
[2021-05-12 08:01] LABS: HEMATOCRIT 27.7 % (36.0-47.0); HEMOGLOBIN 8.3 g/dl (12.0-15.5); MEAN CORPUSCULAR HEMOGLOBIN 26.3 pg (27.0-33.0); MEAN CORPUSCULAR VOLUME 87.7 fl (80.0-96.0); PLATELET COUNT, AUTOMATED 290 10^3/uL (150-450); RED BLOOD COUNT 3.16 10^6/uL (4.00-5.40); WHITE BLOOD COUNT 12.6 10^3/uL (4.0-10.0)
[2021-05-12 08:08] VITALS: BP 113/65
[2021-05-12 08:37] LABS: ALBUMIN 1.9 GM/DL (3.2-5.2); ALT/SGPT 14 U/L (12-78); BILIRUBIN,TOTAL 0.3 MG/DL (0.2-1.0); BLOOD UREA NITROGEN 5 MG/DL (7-18); CALCIUM LEVEL 8.2 MG/DL (8.5-10.1); CARBON DIOXIDE LEVEL 31 MEQ/L (21-32); CHLORIDE LEVEL 107 MEQ/L (98-107); CREATININE FOR GFR 0.46 MG/DL (0.55-1.30); GLOMERULAR FILTRATION RATE > 60.0 (>60); GLUCOSE, FASTING 85 MG/DL (70-100); MAGNESIUM LEVEL 2.3 MG/DL (1.8-2.4); POTASSIUM SERUM 4.2 MEQ/L (3.5-5.1); SODIUM LEVEL 141 MEQ/L (136-145); TOTAL PROTEIN 6.4 GM/DL (6.4-8.2)
[2021-05-12] MEDS: ERTAPENEM SODIUM 1 GM in NS MINI-BAG PLUS 50 ML IV SCH (10:27)
[2021-05-12 10:58] LABS: IMMUNOGLOBULIN G 1710 MG/DL (681-1648); IMMUNOGLOBULIN M 48.1 MG/DL (40-230)
[2021-05-12] MEDS ORDERED: VANCOMYCIN HCL 1,000 MG, VIAL MATE ADAPTER 1 EACH in NS 250 ML IV SCH (11:00)
[2021-05-12] MEDS ORDERED: LIDOCAINE 1% MDV 20ML VIAL As Ordered ONE (11:04)
[2021-05-12 12:07] VITALS: BP 116/74
[2021-05-12] MEDS ORDERED: SODIUM CHLORIDE 0.9% INJ 10 ML SYR IV PRN (14:40)
[2021-05-12] MEDS ORDERED: CETACAINE SPRAY 5GM As Ordered ONE (16:02)
[2021-05-12] MEDS ORDERED: LIDOCAINE VISCOUS 2% SOLN 15ML UDC As Ordered ONE (16:02)
[2021-05-12] MEDS ORDERED: LIDOCAINE 2% 100MG/5ML SDV (FOR ANES.) As Ordered ONE (17:28)
[2021-05-12] MEDS ORDERED: propofoL 200 MG/20 ML VIAL As Ordered ONE (17:28)
[2021-05-12] MEDS ORDERED: MIDAZOLAM INJ 2MG/2ML VIAL (J2250 PER 1MG) As Ordered ONE (17:28)
[2021-05-12] MEDS ORDERED: fentaNYL 100 MCG/2 ML INJECTION As Ordered ONE (17:28)
[2021-05-12] MEDS ORDERED: ONDANSETRON 4MG/2ML VIAL As Ordered ONE (17:28)
[2021-05-12] MEDS ORDERED: ONDANSETRON 4MG/2ML VIAL IV PRN (17:45)
[2021-05-12] MEDS ORDERED: fentaNYL 100 MCG/2 ML INJECTION IV PRN (17:45)
[2021-05-12] MEDS ORDERED: LR 1,000 ML IV SCH (17:45)
[2021-05-12] MEDS ORDERED: CIPROFLOXACIN 400 MG in IV 1 EA IV SCH (18:00)
[2021-05-12] MEDS: SODIUM CHLORIDE 0.9% INJ 10 ML SYR IV SCH (18:01)
[2021-05-12 20:00] VITALS: BP 111/69
[2021-05-12] MEDS: VENLAFAXINE 37.5 MG TAB PO SCH (20:00)
[2021-05-13] VITALS: BP 108/62
[2021-05-13 04:00] VITALS: BP 111/68
[2021-05-13] MEDS: SODIUM CHLORIDE 0.9% INJ 10 ML SYR IV SCH ×2 (05:47→18:33)
[2021-05-13 08:00] VITALS: BP 111/65
[2021-05-13 08:08] LABS: HEMATOCRIT 28.8 % (36.0-47.0); HEMOGLOBIN 8.7 g/dl (12.0-15.5); MEAN CORPUSCULAR HEMOGLOBIN 26.4 pg (27.0-33.0); MEAN CORPUSCULAR HGB CONC 30.2 g/dl (32.0-36.5); MEAN CORPUSCULAR VOLUME 87.3 fl (80.0-96.0); PLATELET COUNT, AUTOMATED 292 10^3/uL (150-450); WHITE BLOOD COUNT 8.2 10^3/uL (4.0-10.0)
[2021-05-13 08:38] LABS: ALBUMIN 2.2 GM/DL (3.2-5.2); ALT/SGPT 15 U/L (12-78); BILIRUBIN,TOTAL 0.3 MG/DL (0.2-1.0); BLOOD UREA NITROGEN 4 MG/DL (7-18); CALCIUM LEVEL 8.4 MG/DL (8.5-10.1); CARBON DIOXIDE LEVEL 31 MEQ/L (21-32); CHLORIDE LEVEL 105 MEQ/L (98-107); CREATININE FOR GFR 0.43 MG/DL (0.55-1.30); GLOMERULAR FILTRATION RATE > 60.0 (>60); GLUCOSE, FASTING 84 MG/DL (70-100); POTASSIUM SERUM 4.5 MEQ/L (3.5-5.1); SODIUM LEVEL 139 MEQ/L (136-145); TOTAL PROTEIN 6.9 GM/DL (6.4-8.2)
[2021-05-13] MEDS: ENOXAPARIN 40MG/0.4ML SYRINGE (J1650 PER 10MG) SC SCH (09:24)
[2021-05-13] MEDS: ERTAPENEM SODIUM 1 GM in NS MINI-BAG PLUS 50 ML IV SCH (09:25)
[2021-05-13 16:00] VITALS: BP 118/70
[2021-05-13 20:00] VITALS: BP 104/65
[2021-05-13] MEDS: VENLAFAXINE 37.5 MG TAB PO SCH (20:15)
[2021-05-14 04:00] VITALS: BP 100/64
[2021-05-14] MEDS: SODIUM CHLORIDE 0.9% INJ 10 ML SYR IV SCH ×2 (05:24→18:38)
[2021-05-14 06:03] LABS: HEMATOCRIT 29.9 % (36.0-47.0); HEMOGLOBIN 8.9 g/dl (12.0-15.5); MEAN CORPUSCULAR HEMOGLOBIN 26.1 pg (27.0-33.0); MEAN CORPUSCULAR HGB CONC 29.8 g/dl (32.0-36.5); MEAN CORPUSCULAR VOLUME 87.7 fl (80.0-96.0); PLATELET COUNT, AUTOMATED 310 10^3/uL (150-450); RED BLOOD COUNT 3.41 10^6/uL (4.00-5.40); WHITE BLOOD COUNT 5.8 10^3/uL (4.0-10.0)
[2021-05-14 06:38] LABS: ALBUMIN 2.2 GM/DL (3.2-5.2); ALT/SGPT 20 U/L (12-78); BILIRUBIN,TOTAL 0.4 MG/DL (0.2-1.0); BLOOD UREA NITROGEN 6 MG/DL (7-18); CALCIUM LEVEL 8.1 MG/DL (8.5-10.1); CARBON DIOXIDE LEVEL 32 MEQ/L (21-32); CHLORIDE LEVEL 106 MEQ/L (98-107); CREATININE FOR GFR 0.48 MG/DL (0.55-1.30); GLOMERULAR FILTRATION RATE > 60.0 (>60); GLUCOSE, FASTING 79 MG/DL (70-100); POTASSIUM SERUM 4.4 MEQ/L (3.5-5.1); SODIUM LEVEL 140 MEQ/L (136-145); TOTAL PROTEIN 6.8 GM/DL (6.4-8.2)
[2021-05-14 08:00] VITALS: BP 107/63
[2021-05-14] MEDS: ERTAPENEM SODIUM 1 GM in NS MINI-BAG PLUS 50 ML IV SCH (09:28)
[2021-05-14] MEDS: ENOXAPARIN 40MG/0.4ML SYRINGE (J1650 PER 10MG) SC SCH (09:29)
[2021-05-14 12:00] VITALS: BP 128/72
[2021-05-14 20:00] VITALS: BP 115/76
[2021-05-14] MEDS: VENLAFAXINE 37.5 MG TAB PO SCH (20:37)
[2021-05-15] VITALS: BP 121/66
[2021-05-15 04:00] VITALS: BP 110/59
[2021-05-15 05:11] LABS: HEMATOCRIT 31.6 % (36.0-47.0); HEMOGLOBIN 9.3 g/dl (12.0-15.5); MEAN CORPUSCULAR HEMOGLOBIN 25.7 pg (27.0-33.0); MEAN CORPUSCULAR HGB CONC 29.4 g/dl (32.0-36.5); MEAN CORPUSCULAR VOLUME 87.3 fl (80.0-96.0); PLATELET COUNT, AUTOMATED 290 10^3/uL (150-450); RED BLOOD COUNT 3.62 10^6/uL (4.00-5.40)
[2021-05-15 05:39] LABS: ALBUMIN 2.2 GM/DL (3.2-5.2); ALT/SGPT 20 U/L (12-78); BILIRUBIN,TOTAL 0.2 MG/DL (0.2-1.0); BLOOD UREA NITROGEN 6 MG/DL (7-18); CALCIUM LEVEL 8.8 MG/DL (8.5-10.1); CARBON DIOXIDE LEVEL 32 MEQ/L (21-32); CHLORIDE LEVEL 107 MEQ/L (98-107); CREATININE FOR GFR 0.54 MG/DL (0.55-1.30); GLOMERULAR FILTRATION RATE > 60.0 (>60); GLUCOSE, FASTING 84 MG/DL (70-100); POTASSIUM SERUM 4.3 MEQ/L (3.5-5.1); SODIUM LEVEL 142 MEQ/L (136-145); TOTAL PROTEIN 7.5 GM/DL (6.4-8.2)
[2021-05-15] MEDS: SODIUM CHLORIDE 0.9% INJ 10 ML SYR IV SCH (05:54)
[2021-05-15 08:00] VITALS: BP 131/70
[2021-05-15] MEDS: ENOXAPARIN 40MG/0.4ML SYRINGE (J1650 PER 10MG) SC SCH (08:11)
[2021-05-15] MEDS: ERTAPENEM SODIUM 1 GM in NS MINI-BAG PLUS 50 ML IV SCH (11:28)
[2021-05-15] MEDS ORDERED: METR-265 PO (14:30)
[2021-05-15] MEDS ORDERED: cefTRIAXone SOD 2 GM in D5W MINI-BAG PLUS 50 ML IV ONE (15:00)
[2021-05-15 15:37] LABS: C REACTIVE PROTEIN QUANTITATIV 4.03 MG/DL (0.00-0.30)
[2021-05-15 16:08] LABS: IgG SERUM (part of Subclasses) 1684 mg/dL (586-1602); IgG Subclass 1 917 mg/dL (248-810); IgG Subclass 2 515 mg/dL (130-555); IgG Subclass 3 38 mg/dL (15-102); IgG Subclass 4 85 mg/dL (2-96)
== END 2021-05-15 16:30 | disposition home health service (06) | DRG 710 ==
LOC: M ED 07:35 → M ED INP 14:48 → M PCU 20:00
PROVIDERS: ADMIT Internal Medicine; ATTEND Internal Medicine
PROC: B246ZZ4 Ultrasonography of Right and Left Heart, Transesophageal (ICD-10-PCS; 2021-05-12)
PROC: 0FC Hepatobiliary System and Pancreas, Extirpation (ICD-10-PCS; 2021-05-12)
PROC: 02HV33Z Insertion of Infusion Device into Superior Vena Cava, Percutaneous Approach (ICD-10-PCS; principal; 2021-05-12 14:00)
DX: A41.9 Sepsis, unspecified organism (principal); K75.0 Abscess of liver; K91.2 Postsurgical malabsorption, not elsewhere classified; E28.2 Polycystic ovarian syndrome; D50.9 Iron deficiency anemia, unspecified; Z98.84 Bariatric surgery status; F32.A Depression, unspecified; Z88.0 Allergy status to penicillin; Z88.2 Allergy status to sulfonamides; F41.9 Anxiety disorder, unspecified

== ENCOUNTER → 2021-06-21 | Outpatient (REF) | payer BC ==
[~2021-06-21] MED LIST changes: +ACET-683 PO; +CEFT1INJ5 IV; +METR-265 PO; +MUCI600T31 PO; +PRED20TA PO; +VITMTA PO
== END ==
LOC: M SFHCPLAZ 12:55
PROVIDERS: ATTEND Internal Medicine Hematology
DX: D50.0 Iron deficiency anemia secondary to blood loss (chronic) (principal)

== ENCOUNTER → 2021-08-27 | Outpatient (CLI) | payer BC ==
[~2021-08-27] MED LIST changes: +PROAAER10 INH; +VITA100093 PO
== END ==
LOC: M LABSMTC 09:35
PROVIDERS: ATTEND Anesthesiology
DX: Z01.812 Encounter for preprocedural laboratory examination (principal); Z20.822 Contact with and (suspected) exposure to COVID-19

== ENCOUNTER → 2021-09-21 | Outpatient (CLI) | payer BC | LOC: M LABSMTC 09:08 | PROVIDERS: ATTEND Anesthesiology | DX: Z01.818 Encounter for other preprocedural examination (principal); Z11.52 Encounter for screening for COVID-19 ==

== ENCOUNTER 2021-09-26 09:27 | Day surgery (SDC) | payer BC ==
[~2021-09-26] VITALS: Ht 172.7 cm; Wt 74.4 kg
[~2021-09-26 09:27] MED LIST changes: +NS 1,000 ML IV ONE
[2021-09-26] MEDS ORDERED: LIDOCAINE 2% 100MG/5ML SDV (FOR ANES.) As Ordered ONE (10:49)
[2021-09-26] MEDS ORDERED: propofoL 200 MG/20 ML VIAL As Ordered ONE (10:49)
[2021-09-26] MEDS ORDERED: SIMETHICONE 40MG/0.6ML DROPS 30ML As Ordered ONE (10:49)
[2021-09-26] MEDS ORDERED: ePHEDrine SULFATE 25 MG/5 ML(5MG/ML) SYRINGE As Ordered ONE (10:51)
[2021-09-26 11:20] VITALS: BP 121/68
== END 2021-09-26 11:29 | disposition home or self-care (01) ==
LOC: M OPP 09:27
PROVIDERS: ATTEND Internal Medicine Gastroenterology
DX: D50.9 Iron deficiency anemia, unspecified (principal); K64.8 Other hemorrhoids; Z98.0 Intestinal bypass and anastomosis status; K50.90 Crohn's disease, unspecified, without complications; A49.1 Streptococcal infection, unspecified site; J45.909 Unspecified asthma, uncomplicated; F41.9 Anxiety disorder, unspecified; F32.9 Major depressive disorder, single episode, unspecified; Z79.51 Long term (current) use of inhaled steroids; Z79.899 Other long term (current) drug therapy; Z88.0 Allergy status to penicillin; Z88.2 Allergy status to sulfonamides; Z87.19 Personal history of other diseases of the digestive system; Z80.6 Family history of leukemia; Z80.41 Family history of malignant neoplasm of ovary

== ENCOUNTER 2023-05-22 11:52 | Outpatient (CLI) | payer BC ==
[~2023-05-22] VITALS: Ht 172.7 cm; Wt 75.7 kg
[~2023-05-22 11:52] MED LIST changes: +ALBU8.5H INH; +DESV100T3; +HYDR50TA70; +MAGN100T PO; -NS 1,000 ML IV ONE; -PAXI40TA10 PO; +PAXI40TA12 PO; +THERTAB52 PO
[2023-05-22 12:00] VITALS: BP 124/65; O2SAT 97
[2023-05-22] MEDS: IRON SUCROSE 300 MG in NS 250 ML OVER 90 MIN. IV ONE (12:14)
[2023-05-22] MEDS: diphenhydrAMINE 25MG PO PRIOR TO INFUSION PO ONE (12:14)
[2023-05-22] MEDS: ACETAMINOPHEN 650MG PO PRIOR TO INFUSION PO ONE (12:14)
[2023-05-22 14:00] VITALS: BP 126/66; O2SAT 97
== END 2023-05-22 14:00 ==
LOC: M INFU 11:52
PROVIDERS: ATTEND Specialist
DX: D50.9 Iron deficiency anemia, unspecified (principal); Z88.0 Allergy status to penicillin; Z88.2 Allergy status to sulfonamides
CPT/HCPCS: 96365; 96366; J1756

== ENCOUNTER 2023-05-29 10:56 | Outpatient (CLI) | payer BC ==
[~2023-05-29] VITALS: Ht 172.7 cm; Wt 75.7 kg
[2023-05-29 11:00] VITALS: BP 119/57; O2SAT 97
[2023-05-29] MEDS ORDERED: diphenhydrAMINE 25MG CAP PO ONE (11:00)
[2023-05-29] MEDS ORDERED: ACETAMINOPHEN TAB 650MG DOSE (2X325MG) PO ONE (11:00)
[2023-05-29] MEDS: IRON SUCROSE 300 MG in NS 250 ML OVER 90 MIN. IV ONE (11:32)
[2023-05-29 13:09] VITALS: BP 124/58; O2SAT 99
== END 2023-05-29 13:10 ==
LOC: M INFU 10:56
PROVIDERS: ATTEND Specialist
DX: D50.9 Iron deficiency anemia, unspecified (principal); Z88.0 Allergy status to penicillin; Z88.2 Allergy status to sulfonamides
CPT/HCPCS: 96365; J1756

== ENCOUNTER 2023-06-05 11:12 | Outpatient (CLI) | payer BC ==
[~2023-06-05] VITALS: Ht 172.7 cm; Wt 75.7 kg
[~2023-06-05 11:12] MED LIST changes: +ACETAMINOPHEN 650MG PO PRIOR TO INFUSION PO ONE; +diphenhydrAMINE 25MG PO PRIOR TO INFUSION PO ONE
[2023-06-05 11:15] VITALS: BP 140/60; O2SAT 95
[2023-06-05] MEDS: IRON SUCROSE 300 MG in NS 250 ML OVER 90 MIN. IV ONE (11:38)
[2023-06-05 11:49] VITALS: BP 132/67; O2SAT 100
[2023-06-05 13:24] VITALS: BP 125/74; O2SAT 97
== END 2023-06-05 13:25 ==
LOC: M INFU 11:12
PROVIDERS: ATTEND Specialist
DX: D50.9 Iron deficiency anemia, unspecified (principal); Z88.0 Allergy status to penicillin; Z88.2 Allergy status to sulfonamides
CPT/HCPCS: 96365; 96366; J1756

== ENCOUNTER 2023-06-12 11:15 | Outpatient (CLI) | payer BC ==
[~2023-06-12] VITALS: Ht 172.7 cm; Wt 75.7 kg
[2023-06-12 11:15] VITALS: BP 129/61; O2SAT 100
[~2023-06-12 11:15] MED LIST changes: -ACETAMINOPHEN 650MG PO PRIOR TO INFUSION PO ONE; -diphenhydrAMINE 25MG PO PRIOR TO INFUSION PO ONE
[2023-06-12] MEDS: ACETAMINOPHEN TAB 650MG DOSE (2X325MG) PO ONE (11:24)
[2023-06-12] MEDS: IRON SUCROSE 300 MG in NS 250 ML OVER 90 MIN. IV ONE (11:24)
[2023-06-12] MEDS: diphenhydrAMINE 25MG CAP PO ONE (11:24)
[2023-06-12 13:05] VITALS: BP 115/66; O2SAT 99
== END 2023-06-12 13:05 ==
LOC: M INFU 11:15
PROVIDERS: ATTEND Specialist
DX: D50.9 Iron deficiency anemia, unspecified (principal); Z88.0 Allergy status to penicillin; Z88.2 Allergy status to sulfonamides
CPT/HCPCS: 96365; 96366; J1756

== ENCOUNTER 2023-06-19 11:01 | Outpatient (CLI) | payer BC ==
[~2023-06-19 11:01] MED LIST changes: +ACETAMINOPHEN TAB 650MG DOSE (2X325MG) PO ONE; +diphenhydrAMINE 25MG CAP PO ONE
[2023-06-19] MEDS: IRON SUCROSE 300 MG in NS 250 ML OVER 90 MIN. IV ONE (11:01)
[2023-06-19 11:09] VITALS: BP 134/74; O2SAT 99
[2023-06-19 12:38] VITALS: BP 118/59; O2SAT 98
== END 2023-06-19 12:47 | disposition home or self-care (01) ==
LOC: M INFU 11:01
PROVIDERS: ATTEND Specialist
DX: D50.9 Iron deficiency anemia, unspecified (principal); Z88.0 Allergy status to penicillin; Z88.2 Allergy status to sulfonamides
CPT/HCPCS: 96365; 96366; J1756